=== PATIENT | female | born 1990 | race Caucasian/White ===

== ENCOUNTER 2017-03-01 01:39 | Emergency (ER) | payer MEDICAID, OTHER ==
[~2017-03-01] VITALS: Ht 170.2 cm; Wt 137.0 kg
[2017-03-01] MEDS ORDERED: ONDANSETRON 2MG/ML, 2ML IVPush ONE (02:00)
[2017-03-01] MEDS ORDERED: FAMOTIDINE 20 MG/2 ML IVP ONE (02:00)
[2017-03-01] MEDS ORDERED: SODIUM CHLORIDE 0.9% 1,000ML IVBOLUS ONE (02:00)
[2017-03-01 02:15] LABS: BLOOD UREA NITROGEN 10 mg/dL (7-18)
[2017-03-01 02:22] LABS: ASPARTATE AMINO TRANSFERASE 23 U/L (15-37)
[2017-03-01] MEDS ORDERED: ONDANSETRON 2MG/ML, 2ML ONE (02:40)
[2017-03-01] MEDS ORDERED: FAMOTIDINE 20 MG/2 ML ONE (02:40)
[2017-03-01] MEDS ORDERED: ONDA4TAB7 PO (02:51)
[2017-03-01 03:32] VITALS: BP 151/82
== END 2017-03-01 03:35 | disposition home or self-care (01) ==
LOC: ED 02:34
DX: R10.84 Generalized abdominal pain (principal); R11.2 Nausea with vomiting, unspecified; G43.A0 Cyclical vomiting, in migraine, not intractable
CPT/HCPCS: 36415; 80053; 83690; 84703; 85025; 96361; 96374; 96375; 99284; J2405; J7030; S0028

== ENCOUNTER 2017-03-02 03:41 | Emergency (ER) | payer OTHER ==
[~2017-03-02] VITALS: Ht 170.2 cm; Wt 135.8 kg
[~2017-03-02 03:41] MED LIST: ONDA4TAB7 PO
[2017-03-02] MEDS ORDERED: SODIUM CHLORIDE 0.9% 1,000ML IVBOLUS ONE (04:00)
[2017-03-02] MEDS ORDERED: PROMETHAZINE 25 MG/ML, 1ML ONE (04:00)
[2017-03-02] MEDS ORDERED: ONDANSETRON 2MG/ML, 2ML IVPush ONE (04:00)
[2017-03-02] MEDS ORDERED: ZIPRASIDONE 20 MG INJ IM ONE ×2 (04:00→04:01)
[2017-03-02] MEDS ORDERED: PROMETHAZINE 25 MG/ML, 1ML IM ONE (04:30)
[2017-03-02 05:01] LABS: ASPARTATE AMINO TRANSFERASE 25 U/L (15-37); BLOOD UREA NITROGEN 13 mg/dL (7-18)
[2017-03-02] MEDS ORDERED: KETOROLAC 30 MG/1 ML ONE (05:33)
[2017-03-02] MEDS ORDERED: ONDANSETRON 2MG/ML, 2ML ONE (05:33)
[2017-03-02] MEDS ORDERED: KETOROLAC 30 MG/1 ML IVPush ONE (06:00)
[2017-03-02] MEDS ORDERED: FAMOTIDINE 20 MG/2 ML ONE (06:27)
[2017-03-02] MEDS ORDERED: FAMOTIDINE 20 MG/2 ML IVPush ONE (06:30)
[2017-03-02 07:11] VITALS: BP 141/78
== END 2017-03-02 07:14 | disposition home or self-care (01) ==
LOC: ED 04:11
DX: K31.84 Gastroparesis (principal); R11.2 Nausea with vomiting, unspecified; R10.84 Generalized abdominal pain; F12.129 Cannabis abuse with intoxication, unspecified
CPT/HCPCS: 36415; 80053; 83690; 85025; 96361; 96372; 96374; 96375; 99284; J1885; J2405; J2550; J3486; J7030; S0028

== ENCOUNTER 2017-03-02 19:31 | Emergency (ER) | payer OTHER ==
[~2017-03-02] VITALS: Ht 170.2 cm; Wt 140.0 kg
[2017-03-02] MEDS ORDERED: DIPHENHYDRAMINE 50 MG/ML, 1ML ONE (20:14)
[2017-03-02] MEDS ORDERED: KETOROLAC 30 MG/1 ML ONE (20:14)
[2017-03-02] MEDS ORDERED: METOCLOPRAMIDE 5 MG/ML, 2ML ONE (20:14)
[2017-03-02] MEDS ORDERED: METOCLOPRAMIDE 5 MG/ML, 2ML IVPush ONE (20:30)
[2017-03-02] MEDS ORDERED: DIPHENHYDRAMINE 50 MG/ML, 1ML IVPush ONE (20:30)
[2017-03-02] MEDS ORDERED: SODIUM CHLORIDE 0.9% 1,000ML IVBOLUS ONE (20:30)
[2017-03-02] MEDS ORDERED: KETOROLAC 30 MG/1 ML IVPush ONE (20:30)
[2017-03-02] MEDS ORDERED: SODIUM CHLORIDE FLUSH 10ML SYR IVF ONE (20:30)
[2017-03-02 21:11] LABS: BLOOD UREA NITROGEN 11 mg/dL (7-18)
[2017-03-02 21:12] LABS: ASPARTATE AMINO TRANSFERASE 22 U/L (15-37)
[2017-03-02 22:06] VITALS: BP 159/88
== END 2017-03-02 22:21 | disposition home or self-care (01) ==
LOC: ED 21:11
DX: R10.84 Generalized abdominal pain (principal); G43.A0 Cyclical vomiting, in migraine, not intractable; F12.10 Cannabis abuse, uncomplicated
CPT/HCPCS: 36415; 76700; 80053; 83690; 85025; 96365; 96366; 96375; 99285; J1200; J1885; J2765; J7030

== ENCOUNTER 2017-03-03 07:51 | Emergency (ER) | payer OTHER ==
[~2017-03-03] VITALS: Ht 167.6 cm; Wt 110.0 kg
[2017-03-03] MEDS ORDERED: HALOPERIDOL 5 MG/ML IM STA (08:34)
[2017-03-03] MEDS ORDERED: ONDANSETRON 2MG/ML, 2ML ONE (08:42)
[2017-03-03] MEDS ORDERED: HALOPERIDOL 5 MG/ML ONE (08:42)
[2017-03-03] MEDS ORDERED: ONDANSETRON 2MG/ML, 2ML IVPush ONE (09:00)
[2017-03-03] MEDS ORDERED: FAMOTIDINE 20 MG/2 ML IVP ONE (09:00)
[2017-03-03] MEDS ORDERED: SODIUM CHLORIDE 0.9% 1,000ML IVBOLUS ONE (09:00)
[2017-03-03] MEDS ORDERED: LORazepam 2 MG/ML, 1ML IVPush ONE (09:00)
[2017-03-03] MEDS ORDERED: SODIUM CHLORIDE FLUSH 10ML SYR IVF ONE (09:00)
[2017-03-03 09:24] LABS: BLOOD UREA NITROGEN 11 mg/dL (7-18)
[2017-03-03 09:27] LABS: ASPARTATE AMINO TRANSFERASE 18 U/L (15-37)
[2017-03-03] MEDS ORDERED: POTASSIUM CHLORIDE 10% 40 MEQ/30 ML UDC PO ONE (10:00)
[2017-03-03 10:49] VITALS: BP 118/67
== END 2017-03-03 12:05 | disposition home or self-care (01) ==
LOC: ED 07:58
DX: E87.6 Hypokalemia (principal); R11.2 Nausea with vomiting, unspecified
CPT/HCPCS: 36415; 80053; 81001; 83690; 85025; 87086; 93005; 96361; 96372; 96374; 96375; 99285; J1630; J2060; J2405; J7030; S0028

== ENCOUNTER 2017-03-22 15:27 | Inpatient (IN) | payer OTHER, MEDICAID ==
[~2017-03-22] VITALS: Ht 170.2 cm; Wt 134.5 kg
[2017-03-22] MEDS ORDERED: ONDANSETRON 2MG/ML, 2ML ONE ×3 (15:55→16:34)
[2017-03-22] MEDS ORDERED: SODIUM CHLORIDE FLUSH 10ML SYR IVF ONE (16:00)
[2017-03-22] MEDS ORDERED: ONDANSETRON 2MG/ML, 2ML IVPush ONE (16:00)
[2017-03-22] MEDS ORDERED: SODIUM CHLORIDE 0.9% 1,000ML IVBOLUS ONE ×2 (16:00→18:00)
[2017-03-22 16:15] LABS: ASPARTATE AMINO TRANSFERASE 24 U/L (15-37); BLOOD UREA NITROGEN 10 mg/dL (7-18)
[2017-03-22] MEDS ORDERED: FAMOTIDINE 20 MG/2 ML ONE (16:20)
[2017-03-22] MEDS ORDERED: METOCLOPRAMIDE 5 MG/ML, 2ML ONE (16:20)
[2017-03-22] MEDS ORDERED: FAMOTIDINE 20 MG/2 ML IVP ONE (16:30)
[2017-03-22] MEDS ORDERED: METOCLOPRAMIDE 5 MG/ML, 2ML IVPush ONE (16:30)
[2017-03-22] MEDS ORDERED: LORazepam 2 MG/ML, 1ML IVPush ONE (17:00)
[2017-03-22] MEDS ORDERED: LORazepam 2 MG/ML, 1ML ONE (17:08)
[2017-03-22] MEDS ORDERED: PROMETHAZINE 25 MG/ML, 1ML ONE (18:53)
[2017-03-22] MEDS ORDERED: PROMETHAZINE 25 MG/ML, 1ML IM ONE (19:00)
[2017-03-22] MEDS ORDERED: SODIUM CHLORIDE 0.9% 1,000 ML IV ONE (20:09)
[2017-03-22] MEDS ORDERED: SODIUM CHLORIDE FLUSH 10ML SYR IVF PRN (20:30)
[2017-03-22] MEDS ORDERED: ONDANSETRON 2MG/ML, 2ML IVPush PRN (20:30)
[2017-03-22] MEDS ORDERED: BISACODYL 10 MG SUPP PR PRN (21:00)
[2017-03-22] MEDS: HEPARIN 5,000 UNITS/ML, 1ML SQ SCH (22:04)
[2017-03-22] MEDS: NS + 20MEQ KCL 1,000 ML IV SCH (22:04)
[2017-03-22] MEDS: PROMETHAZINE 25 MG/ML, 1ML IM PRN (22:05)
[2017-03-22 22:12] VITALS: BP 144/89
[2017-03-22] MEDS: ONDANSETRON 2MG/ML, 2ML IVPush PRN (22:36)
[2017-03-22] MEDS: HYDROmorphone 2 MG/ML, 1ML IVPush PRN (22:36)
[2017-03-23] MEDS: PROMETHAZINE 25 MG/ML, 1ML IM PRN ×6 (00:58→23:28)
[2017-03-23 02:00] VITALS: BP 121/76
[2017-03-23] MEDS: ONDANSETRON 2MG/ML, 2ML IVPush PRN ×3 (05:15→20:00)
[2017-03-23 05:30] LABS: ASPARTATE AMINO TRANSFERASE 17 U/L (15-37); BLOOD UREA NITROGEN 9 mg/dL (7-18)
[2017-03-23] MEDS: HYDROmorphone 2 MG/ML, 1ML IVPush PRN (06:15)
[2017-03-23] MEDS: NS + 20MEQ KCL 1,000 ML IV SCH ×3 (06:15→23:29)
[2017-03-23] MEDS: HEPARIN 5,000 UNITS/ML, 1ML SQ SCH ×3 (06:15→19:59)
[2017-03-23 07:28] VITALS: BP 121/79
[2017-03-23 12:49] VITALS: BP 124/85
[2017-03-23] MEDS: ACETAMINOPHEN 325 MG TABLET PO PRN ×2 (14:01→20:00)
[2017-03-23 20:00] VITALS: BP 149/83
[2017-03-23] MEDS: FAMOTIDINE 20 MG TABLET PO SCH (23:51)
[2017-03-24] VITALS (7 sets, daily range): BP systolic 80–156; BP diastolic 56–105
[2017-03-24] MEDS: ONDANSETRON 2MG/ML, 2ML IVPush PRN ×3 (02:41→17:38)
[2017-03-24] MEDS ORDERED: SODIUM CHLORIDE 0.9%, 500ML IVBOLUS ONE (03:00)
[2017-03-24] MEDS ORDERED: NITROGLYCERIN 0.4 MG BOTTLE (25 TABS) SL ONE (03:28)
[2017-03-24] MEDS ORDERED: NITROGLYCERIN 0.4 MG BOTTLE (25 TABS) SL PRN ×2 (03:30→17:00)
[2017-03-24 04:00] LABS: IS PT STATUS REG ER OR PRE ER? NO
[2017-03-24] MEDS ORDERED: MAGNESIUM SULFATE PMX 2GM/50ML 50 ML IV ONE (04:00)
[2017-03-24] MEDS ORDERED: FAMOTIDINE 20 MG/2 ML IVPush SCH (04:00)
[2017-03-24] MEDS ORDERED: MORPHINE SULFATE 4 MG/ML, 1ML IVPush ONE (04:00)
[2017-03-24] MEDS ORDERED: METOCLOPRAMIDE 5 MG/ML, 2ML IVPush ONE (04:00)
[2017-03-24] MEDS: HEPARIN 5,000 UNITS/ML, 1ML SQ SCH ×2 (06:42→14:00)
[2017-03-24 08:04] LABS: ASPARTATE AMINO TRANSFERASE 23 U/L (15-37); BLOOD UREA NITROGEN 7 mg/dL (7-18)
[2017-03-24] MEDS: FAMOTIDINE 20 MG TABLET PO SCH ×2 (09:18→20:30)
[2017-03-24] MEDS: SUCRALFATE 1 GM TABLET PO SCH ×4 (09:18→20:30)
[2017-03-24] MEDS: NS + 20MEQ KCL 1,000 ML IV SCH (09:18)
[2017-03-24] MEDS: PROMETHAZINE 25 MG/ML, 1ML IM PRN ×2 (09:19→14:43)
[2017-03-24] MEDS: ACETAMINOPHEN 325 MG TABLET PO PRN (14:43)
[2017-03-24] MEDS ORDERED: BISACODYL 10 MG SUPP PR PRN (17:00)
[2017-03-24] MEDS ORDERED: NS + 20MEQ KCL 1,000 ML IV SCH (17:00)
[2017-03-24] MEDS ORDERED: HEPARIN 5,000 UNITS/ML, 1ML SQ SCH (21:00)
[2017-03-25] MEDS ORDERED: MULT-208 PO (04:09)
== END 2017-03-24 22:06 | disposition home or self-care (01) | DRG 103 ==
LOC: ED 16:30 → EDIP 20:09 → 3NE 20:54
PROVIDERS: ADMIT Internal Medicine; ATTEND Internal Medicine
DX: G43.A0 Cyclical vomiting, in migraine, not intractable (principal); Z68.42 Body mass index [BMI] 45.0-49.9, adult; E66.01 Morbid (severe) obesity due to excess calories; F41.9 Anxiety disorder, unspecified; D75.89 Other specified diseases of blood and blood-forming organs; D72.829 Elevated white blood cell count, unspecified; R73.9 Hyperglycemia, unspecified; E88.89 Other specified metabolic disorders; E86.0 Dehydration; I45.81 Long QT syndrome; E28.2 Polycystic ovarian syndrome; T73.0XXA Starvation, initial encounter; F12.90 Cannabis use, unspecified, uncomplicated; Z53.21 Procedure and treatment not carried out due to patient leaving prior to being seen by health care provider
CPT/HCPCS: 36415; 71010; 74020; 74177; 76700; 80053; 81001; 83036; 83690; 83735; 84484; 84703; 85025; 87086; 93005; 96361; 96372; 96374; 96375; J1170; J1644; J2405; J2550; J3480; J2060; J2765; J3475; J7030; J7040; S0028

== ENCOUNTER 2017-03-25 02:45 | Emergency (ER) | payer MEDICAID, OTHER ==
[~2017-03-25] VITALS: Ht 170.2 cm; Wt 140.6 kg
[2017-03-25] MEDS ORDERED: PROMETHAZINE 25 MG/ML, 1ML ONE (03:26)
[2017-03-25] MEDS ORDERED: FAMOTIDINE 20 MG/2 ML ONE (03:27)
[2017-03-25] MEDS ORDERED: MAALOX/HYOSCYAMINE/LIDOCAINE 45 ML BOTTLE ONE (03:27)
[2017-03-25] MEDS ORDERED: MAALOX/HYOSCYAMINE/LIDOCAINE 45 ML BOTTLE PO ONE (03:30)
[2017-03-25] MEDS ORDERED: FAMOTIDINE 20 MG/2 ML IVP ONE (03:30)
[2017-03-25] MEDS ORDERED: HALOPERIDOL 5 MG/ML IM ONE (03:30)
[2017-03-25] MEDS ORDERED: SODIUM CHLORIDE FLUSH 10ML SYR IVF ONE (03:30)
[2017-03-25] MEDS ORDERED: PROMETHAZINE 25 MG/ML, 1ML IM ONE (03:30)
[2017-03-25] MEDS ORDERED: SODIUM CHLORIDE 0.9% 1,000ML IVBOLUS ONE (03:30)
[2017-03-25 03:41] LABS: ASPARTATE AMINO TRANSFERASE 32 U/L (15-37); BLOOD UREA NITROGEN 6 mg/dL (7-18)
[2017-03-25] MEDS ORDERED: MULT-208 PO (04:09)
[2017-03-25 04:19] LABS: PATH.CAST-FLAG NOT PRESENT; SPERM-FLAG NOT PRESENT; SRC-FLAG NOT PRESENT; XTAL-FLAG NOT PRESENT; YLC-FLAG NOT PRESENT
[2017-03-25 05:18] VITALS: BP 104/55
== END 2017-03-25 05:19 | disposition home or self-care (01) ==
LOC: ED 05:13
DX: R11.2 Nausea with vomiting, unspecified (principal)
CPT/HCPCS: 36415; 80053; 81001; 83690; 84703; 85025; 87086; 96361; 96372; 96374; 99284; J2550; J7030; S0028

== ENCOUNTER 2017-03-25 08:27 | Emergency (ER) | payer OTHER ==
[~2017-03-25] VITALS: Ht 170.2 cm; Wt 140.7 kg
[~2017-03-25 08:27] MED LIST changes: +MULT-208 PO
[2017-03-25 08:35] VITALS: BP 156/92
[2017-03-25] MEDS ORDERED: SODIUM CHLORIDE 0.9% 1,000 ML IV ONE ×2 (09:04→09:48)
[2017-03-25] MEDS ORDERED: ONDANSETRON 2MG/ML, 2ML ONE (09:14)
[2017-03-25] MEDS ORDERED: PROCHLORPERAZINE 5 MG/ML, 2ML ONE (09:14)
[2017-03-25] MEDS ORDERED: FAMOTIDINE 20 MG/2 ML ONE (09:14)
[2017-03-25 09:29] LABS: ASPARTATE AMINO TRANSFERASE 34 U/L (15-37); BLOOD UREA NITROGEN 6 mg/dL (7-18)
[2017-03-25] MEDS ORDERED: SODIUM CHLORIDE FLUSH 10ML SYR IVF ONE (09:30)
[2017-03-25] MEDS ORDERED: ONDANSETRON 2MG/ML, 2ML IVPush ONE (09:30)
[2017-03-25] MEDS ORDERED: FAMOTIDINE 20 MG/2 ML IVP ONE (09:30)
[2017-03-25] MEDS ORDERED: SODIUM CHLORIDE 0.9% 1,000ML IVBOLUS ONE (09:30)
[2017-03-25] MEDS ORDERED: PROCHLORPERAZINE 5 MG/ML, 2ML IVPush ONE (09:30)
[2017-03-25] MEDS ORDERED: SODIUM CHLORIDE FLUSH 10ML SYR IVF PRN (10:00)
[2017-03-25] MEDS ORDERED: POTASSIUM CHLORIDE 20 MEQ TAB.ER.PRT PO ONE (10:00)
== END 2017-03-25 11:12 | disposition home or self-care (01) ==
LOC: ED 09:19 → UNDOADMIN 09:48 → EDIP 09:48 → ED 11:12
DX: E86.0 Dehydration (principal); R11.2 Nausea with vomiting, unspecified
CPT/HCPCS: 36415; 80053; 83690; 85025; 96361; 96374; 96375; 99284; J0780; J2405; J7030; S0028

== ENCOUNTER 2017-03-25 22:26 | Emergency (ER) | payer OTHER ==
[~2017-03-25] VITALS: Ht 170.2 cm; Wt 142.8 kg
[2017-03-25] MEDS ORDERED: PROMETHAZINE 25 MG/ML, 1ML ONE (22:42)
[2017-03-25] MEDS ORDERED: ONDANSETRON ODT 4 MG ONE (22:43)
[2017-03-25] MEDS ORDERED: PROMETHAZINE 25 MG/ML, 1ML IM ONE (23:00)
[2017-03-25] MEDS ORDERED: ONDANSETRON ODT 4 MG PO ONE (23:00)
[2017-03-25 23:48] LABS: BLOOD UREA NITROGEN 6 mg/dL (7-18)
[2017-03-26] MEDS ORDERED: POTASSIUM CHLORIDE 20 MEQ TAB.ER.PRT PO ONE
[2017-03-26 00:03] LABS: ASPARTATE AMINO TRANSFERASE 34 U/L (15-37)
[2017-03-26] MEDS ORDERED: KETOROLAC 30 MG/1 ML ONE (00:14)
[2017-03-26] MEDS ORDERED: ONDANSETRON ODT 4 MG ONE (00:14)
[2017-03-26] MEDS ORDERED: POTASSIUM CHLORIDE 20 MEQ TAB.ER.PRT ONE (00:15)
[2017-03-26 00:30] VITALS: BP 132/78
== END 2017-03-26 00:32 | disposition home or self-care (01) ==
LOC: ED 23:20
DX: R11.2 Nausea with vomiting, unspecified (principal); E87.6 Hypokalemia; G43.A0 Cyclical vomiting, in migraine, not intractable; F11.90 Opioid use, unspecified, uncomplicated
CPT/HCPCS: 36415; 74022; 80053; 83690; 85025; 96372; 99285; J2550; Q0162

== ENCOUNTER 2017-04-08 16:22 | Emergency (ER) | payer OTHER ==
[~2017-04-08] VITALS: Ht 170.2 cm; Wt 139.4 kg
[2017-04-08 16:27] VITALS: BP 172/81
[2017-04-08] MEDS ORDERED: ONDANSETRON 2MG/ML, 2ML IVPush ONE (17:00)
[2017-04-08] MEDS ORDERED: FAMOTIDINE 20 MG/2 ML IVP ONE (17:00)
[2017-04-08] MEDS ORDERED: SODIUM CHLORIDE FLUSH 10ML SYR IVF ONE (17:00)
[2017-04-08] MEDS ORDERED: SODIUM CHLORIDE 0.9% 1,000ML IVBOLUS ONE (17:00)
[2017-04-08 17:13] LABS: ASPARTATE AMINO TRANSFERASE 24 U/L (15-37); BLOOD UREA NITROGEN 10 mg/dL (7-18)
[2017-04-08] MEDS ORDERED: HALOPERIDOL 5 MG/ML IM ONE ×2 (17:30)
[2017-04-08] MEDS ORDERED: LORazepam 2 MG/ML, 1ML IVPush ONE (17:30)
[2017-04-08] MEDS ORDERED: HALOPERIDOL 5 MG/ML ONE (17:31)
[2017-04-08] MEDS ORDERED: LORazepam 2 MG/ML, 1ML ONE (17:31)
[2017-04-08] MEDS ORDERED: ONDANSETRON 2MG/ML, 2ML ONE (17:31)
[2017-04-08] MEDS ORDERED: FAMOTIDINE 20 MG/2 ML ONE (17:31)
[2017-04-08 18:26] LABS: DIFF TOTAL CELLS COUNTED 100 CELL DIFF
[2017-04-08 18:27] LABS: VERIFY COUNTS? YES
[2017-04-08 18:28] LABS: LARGE PLATELETS 1+
== END 2017-04-08 19:15 | disposition home or self-care (01) ==
LOC: ED 19:00
DX: D72.829 Elevated white blood cell count, unspecified (principal); R11.10 Vomiting, unspecified
CPT/HCPCS: 36415; 80053; 83690; 84703; 85025; 96361; 96372; 96374; 96375; 99284; J1630; J2060; J2405; J7030; S0028

== ENCOUNTER 2017-04-23 04:07 | Emergency (ER) | payer OTHER ==
[~2017-04-23] VITALS: Ht 170.2 cm; Wt 105.0 kg
[2017-04-23] MEDS ORDERED: DIPHENHYDRAMINE 50 MG/ML, 1ML ONE (04:57)
[2017-04-23] MEDS ORDERED: KETOROLAC 30 MG/1 ML ONE (04:57)
[2017-04-23] MEDS ORDERED: METOCLOPRAMIDE 5 MG/ML, 2ML ONE (04:57)
[2017-04-23] MEDS ORDERED: FAMOTIDINE 20 MG/2 ML ONE (04:58)
[2017-04-23] MEDS ORDERED: DIPHENHYDRAMINE 50 MG/ML, 1ML IVPush ONE (05:00)
[2017-04-23] MEDS ORDERED: METOCLOPRAMIDE 5 MG/ML, 2ML IVPush ONE (05:00)
[2017-04-23] MEDS ORDERED: SODIUM CHLORIDE FLUSH 10ML SYR IVF ONE (05:00)
[2017-04-23] MEDS ORDERED: DICYCLOMINE 20 MG TABLET PO ONE (05:00)
[2017-04-23] MEDS ORDERED: SODIUM CHLORIDE 0.9% 1,000ML IVBOLUS ONE (05:00)
[2017-04-23] MEDS ORDERED: FAMOTIDINE 20 MG/2 ML IVP ONE (05:00)
[2017-04-23] MEDS ORDERED: KETOROLAC 30 MG/1 ML IVPush ONE (05:00)
[2017-04-23 06:40] LABS: HEMATOCRIT 38.9 % (34.6-47.8); HEMOGLOBIN 12.7 g/dL (11.7-16.4); WHITE BLOOD COUNT 18.4 x10^3/uL (3.4-10)
[2017-04-23 06:52] LABS: BLOOD UREA NITROGEN 9 mg/dL (7-18)
[2017-04-23] MEDS ORDERED: PROMETHAZINE 25 MG/ML, 1ML ONE (07:22)
[2017-04-23] MEDS ORDERED: HALOPERIDOL 5 MG/ML ONE (07:30)
[2017-04-23] MEDS ORDERED: HALOPERIDOL 5 MG/ML IV ONE (07:30)
[2017-04-23] MEDS ORDERED: PROMETHAZINE 25 MG/ML, 1ML IM ONE (07:30)
[2017-04-23] MEDS ORDERED: METO10TA82 PO (07:51)
[2017-04-23] MEDS ORDERED: ONDA4TAB10 PO (07:51)
[2017-04-23] MEDS ORDERED: FAMO-79 PO (07:51)
[2017-04-23 08:25] VITALS: BP 138/81
== END 2017-04-23 08:28 | disposition home or self-care (01) ==
LOC: ED 04:17
DX: R10.84 Generalized abdominal pain (principal); Z72.9 Problem related to lifestyle, unspecified; R11.2 Nausea with vomiting, unspecified; F12.10 Cannabis abuse, uncomplicated
CPT/HCPCS: 36415; 80048; 85025; 96361; 96372; 96374; 96375; 99285; J1200; J1630; J1885; J2550; J2765; J7030; S0028

== ENCOUNTER 2017-05-15 01:58 | Inpatient (IN) | payer OTHER, MEDICAID ==
[~2017-05-15] VITALS: Ht 170.2 cm; Wt 141.8 kg
[~2017-05-15 01:58] MED LIST changes: +FAMO-79 PO; +METO10TA82 PO; +ONDA4TAB10 PO
[2017-05-15] MEDS ORDERED: ONDANSETRON 2MG/ML, 2ML IVPush ONE ×2 (02:30→04:30)
[2017-05-15] MEDS ORDERED: PROMETHAZINE 25 MG/ML, 1ML IM ONE (02:30)
[2017-05-15] MEDS ORDERED: SODIUM CHLORIDE 0.9% 1,000ML IVBOLUS ONE ×2 (02:30→04:30)
[2017-05-15] MEDS ORDERED: ONDANSETRON 2MG/ML, 2ML ONE ×2 (02:32→03:44)
[2017-05-15] MEDS ORDERED: PROMETHAZINE 25 MG/ML, 1ML ONE (02:32)
[2017-05-15 02:43] LABS: HEMATOCRIT 36.8 % (34.6-47.8); HEMOGLOBIN 12.3 g/dL (11.7-16.4); WHITE BLOOD COUNT 16.5 x10^3/uL (3.4-10)
[2017-05-15 02:51] LABS: ASPARTATE AMINO TRANSFERASE 11 U/L (15-37); BLOOD UREA NITROGEN 8 mg/dL (7-18)
[2017-05-15] MEDS ORDERED: ZIPRASIDONE 20 MG INJ IM ONE ×3 (03:30→04:30)
[2017-05-15] MEDS: ZIPRASIDONE 20 MG INJ IM ONE ×2 (03:30→04:22)
[2017-05-15] MEDS ORDERED: SODIUM CHLORIDE 0.9% 1,000 ML IV ONE (05:18)
[2017-05-15] MEDS ORDERED: PROMETHAZINE 25 MG/ML, 1ML IM PRN (05:30)
[2017-05-15] MEDS ORDERED: ONDANSETRON 2MG/ML, 2ML IVPush PRN (05:30)
[2017-05-15 06:19] VITALS: BP 135/93
[2017-05-15] MEDS ORDERED: ACETAMINOPHEN 325 MG TABLET PO PRN (06:30)
[2017-05-15] MEDS ORDERED: DOCUSATE 100 MG CAPSULE PO PRN (06:30)
[2017-05-15] MEDS: NS + 20MEQ KCL 1,000 ML IV SCH ×2 (06:33→16:36)
[2017-05-15] MEDS: KETOROLAC 30 MG/1 ML IM PRN ×2 (07:13→18:36)
[2017-05-15] MEDS: FAMOTIDINE 20 MG TABLET PO SCH ×2 (08:58→20:46)
[2017-05-15] MEDS: ENOXAPARIN 40 MG/0.4 ML SQ SCH (08:58)
[2017-05-15] MEDS: ONDANSETRON 2MG/ML, 2ML IVPush PRN ×2 (10:44→17:47)
[2017-05-15] MEDS: PROMETHAZINE 25 MG/ML, 1ML IM PRN ×3 (12:08→20:48)
[2017-05-15 13:42] VITALS: BP 146/87
[2017-05-15] MEDS: METOCLOPRAMIDE 10MG TABLET PO PRN ×2 (13:42→20:46)
[2017-05-15 19:16] VITALS: BP 104/70
[2017-05-16] MEDS: ONDANSETRON 2MG/ML, 2ML IVPush PRN ×2 (00:15→09:00)
[2017-05-16] MEDS: KETOROLAC 30 MG/1 ML IVPush PRN ×2 (00:28→07:26)
[2017-05-16] MEDS: PROMETHAZINE 25 MG/ML, 1ML IM PRN ×3 (00:31→12:44)
[2017-05-16] MEDS: METOCLOPRAMIDE 10MG TABLET PO PRN (03:31)
[2017-05-16 03:34] VITALS: BP 114/72
[2017-05-16 05:42] LABS: HEMATOCRIT 32.4 % (34.6-47.8); HEMOGLOBIN 10.9 g/dL (11.7-16.4); WHITE BLOOD COUNT 13.1 x10^3/uL (3.4-10)
[2017-05-16 06:11] LABS: BLOOD UREA NITROGEN 7 mg/dL (7-18)
[2017-05-16] MEDS: ENOXAPARIN 40 MG/0.4 ML SQ SCH (07:06)
[2017-05-16] MEDS: FAMOTIDINE 20 MG TABLET PO SCH ×2 (07:25→21:21)
[2017-05-16 08:05] VITALS: BP 153/104
[2017-05-16] MEDS: METOCLOPRAMIDE 10MG TABLET PO SCH ×3 (11:12→23:02)
[2017-05-16 11:15] VITALS: BP 154/94
[2017-05-16 12:05] VITALS: BP 151/101
[2017-05-16] MEDS: D5%-0.9% NACL+KCL 20MEQ 1,000 ML IV SCH ×2 (12:47→22:21)
[2017-05-16 20:01] VITALS: BP 116/77
[2017-05-17 02:00] VITALS: BP 127/74
[2017-05-17] MEDS: METOCLOPRAMIDE 10MG TABLET PO SCH ×2 (05:59→11:54)
[2017-05-17] MEDS: FAMOTIDINE 20 MG TABLET PO SCH (07:28)
[2017-05-17 07:46] VITALS: BP 136/94
[2017-05-17 13:54] VITALS: BP 109/67
== END 2017-05-17 16:45 | disposition home or self-care (01) | DRG 103 ==
LOC: ED 02:27 → EDIP 05:39 → 3NE 06:09
PROVIDERS: ADMIT Family Medicine; ATTEND Family Medicine
DX: G43.A0 Cyclical vomiting, in migraine, not intractable (principal); Z68.42 Body mass index [BMI] 45.0-49.9, adult; E66.01 Morbid (severe) obesity due to excess calories; E87.6 Hypokalemia; F12.90 Cannabis use, unspecified, uncomplicated
CPT/HCPCS: 36415; 80048; 80053; 83690; 83735; 84703; 85025; 96361; 96372; 96374; 96376; J1885; J2405; J2550; J3480; J3486; J7030

== ENCOUNTER 2017-06-05 18:24 | Inpatient (IN) | payer OTHER, MEDICAID ==
[~2017-06-05] VITALS: Ht 170.2 cm; Wt 140.2 kg
[2017-06-05] MEDS ORDERED: ZIPRASIDONE 20 MG INJ IM ONE ×2 (18:30→18:46)
[2017-06-05] MEDS ORDERED: SODIUM CHLORIDE FLUSH 10ML SYR IVF ONE (18:30)
[2017-06-05] MEDS ORDERED: SODIUM CHLORIDE 0.9% 1,000ML IVBOLUS ONE (18:30)
[2017-06-05] MEDS ORDERED: FAMOTIDINE 20 MG/2 ML IVP ONE (18:30)
[2017-06-05] MEDS ORDERED: FAMOTIDINE 20 MG/2 ML ONE (18:46)
[2017-06-05 19:11] LABS: HEMATOCRIT 40.1 % (34.6-47.8); WHITE BLOOD COUNT 22.2 x10^3/uL (3.4-10)
[2017-06-05 19:19] LABS: DIFF TOTAL CELLS COUNTED 100 CELL DIFF
[2017-06-05 19:21] LABS: BLOOD UREA NITROGEN 9 mg/dL (7-18)
[2017-06-05 19:44] LABS: VERIFY COUNTS? YES
[2017-06-05] MEDS ORDERED: ONDANSETRON 2MG/ML, 2ML ONE (21:03)
[2017-06-05] MEDS ORDERED: LORazepam 2 MG/ML, 1ML ONE (21:04)
[2017-06-05] MEDS: LORazepam 2 MG/ML, 1ML IVPush PRN (21:12)
[2017-06-05] MEDS: ONDANSETRON 2MG/ML, 2ML IVPush PRN (21:14)
[2017-06-05] MEDS: SODIUM CHLORIDE 0.9% 1,000 ML IV SCH (22:24)
[2017-06-05 22:25] VITALS: BP 119/86
[2017-06-06 01:06] VITALS: BP 102/66
[2017-06-06] MEDS: LORazepam 2 MG/ML, 1ML IVPush PRN (02:13)
[2017-06-06] MEDS: PROMETHAZINE 25 MG/ML, 1ML IM PRN ×3 (03:29→20:50)
[2017-06-06 05:35] LABS: HEMATOCRIT 36.1 % (34.6-47.8); HEMOGLOBIN 12.1 g/dL (11.7-16.4); WHITE BLOOD COUNT 16.8 x10^3/uL (3.4-10)
[2017-06-06 05:55] LABS: BLOOD UREA NITROGEN 8 mg/dL (7-18)
[2017-06-06 07:01] VITALS: BP 124/80
[2017-06-06] MEDS ORDERED: PANTOPRAZOLE 40 MG IV IVPush SCH (07:30)
[2017-06-06] MEDS: ONDANSETRON 2MG/ML, 2ML IVPush PRN (09:08)
[2017-06-06] MEDS: FAMOTIDINE 20 MG TABLET PO SCH (09:08)
[2017-06-06] MEDS ORDERED: ACETAMINOPHEN 650 MG SUPP PR PRN (09:30)
[2017-06-06 13:46] VITALS: BP 131/72
[2017-06-06] MEDS: SODIUM CHLORIDE 0.9% 1,000 ML IV SCH (14:36)
[2017-06-06 17:57] LABS: DAU SCREEN DISCLAIMER
[2017-06-06 19:05] VITALS: BP 108/74
[2017-06-07 01:51] VITALS: BP 125/81
[2017-06-07] MEDS ORDERED: ONDANSETRON ODT 4 MG PO PRN (02:30)
[2017-06-07 05:31] LABS: HEMATOCRIT 34.9 % (34.6-47.8); HEMOGLOBIN 11.6 g/dL (11.7-16.4); WHITE BLOOD COUNT 11.9 x10^3/uL (3.4-10)
[2017-06-07 05:54] LABS: ASPARTATE AMINO TRANSFERASE 21 U/L (15-37); BLOOD UREA NITROGEN 10 mg/dL (7-18)
[2017-06-07 06:50] VITALS: BP 120/81
[2017-06-07] MEDS: FAMOTIDINE 20 MG TABLET PO SCH (08:55)
[2017-06-07] MEDS: PROMETHAZINE 25 MG/ML, 1ML IM PRN (08:55)
[2017-06-07] MEDS ORDERED: PROM25SU34 RC (09:58)
== END 2017-06-07 13:32 | disposition home or self-care (01) | DRG 392 ==
LOC: ED 18:31 → EDIP 20:31 → 4WST 21:51 → 3NE 22:15 → OBSVTOIN 06-07 09:11
PROVIDERS: ADMIT Internal Medicine; ATTEND Internal Medicine
DX: R11.2 Nausea with vomiting, unspecified (principal); Z68.42 Body mass index [BMI] 45.0-49.9, adult; E66.01 Morbid (severe) obesity due to excess calories; F41.9 Anxiety disorder, unspecified; F12.90 Cannabis use, unspecified, uncomplicated
CPT/HCPCS: 36415; 80048; 80053; 80307; 81003; 82040; 83735; 85025; 96372; 96374; G0378; J2405; J2550; J3486; G0479; J2060; J7030; S0028

== ENCOUNTER 2017-06-22 12:05 | Emergency (ER) | payer OTHER, MEDICAID ==
[~2017-06-22] VITALS: Ht 170.2 cm; Wt 139.8 kg
[~2017-06-22 12:05] MED LIST changes: +PROM25SU34 RC
[2017-06-22] MEDS ORDERED: SODIUM CHLORIDE 0.9% 1,000 ML IV ONE (12:30)
[2017-06-22] MEDS ORDERED: ONDANSETRON 2MG/ML, 2ML IVPush ONE (12:30)
[2017-06-22] MEDS ORDERED: FAMOTIDINE 20 MG/2 ML IVP ONE (12:30)
[2017-06-22] MEDS ORDERED: SODIUM CHLORIDE 0.9% 1,000ML IVBOLUS ONE (12:30)
[2017-06-22] MEDS ORDERED: SODIUM CHLORIDE FLUSH 10ML SYR IVF ONE (12:30)
[2017-06-22] MEDS ORDERED: ONDANSETRON 2MG/ML, 2ML ONE (12:44)
[2017-06-22] MEDS ORDERED: FAMOTIDINE 20 MG/2 ML ONE (12:44)
[2017-06-22 13:03] LABS: HEMATOCRIT 35.5 % (34.6-47.8); HEMOGLOBIN 11.9 g/dL (11.7-16.4)
[2017-06-22 13:16] LABS: ASPARTATE AMINO TRANSFERASE 16 U/L (15-37); BLOOD UREA NITROGEN 3 mg/dL (7-18)
[2017-06-22 13:39] VITALS: BP 128/76
== END 2017-06-22 14:08 | disposition home or self-care (01) ==
LOC: ED 12:56
DX: R11.2 Nausea with vomiting, unspecified (principal); G43.A0 Cyclical vomiting, in migraine, not intractable
CPT/HCPCS: 36415; 80053; 81003; 83690; 84703; 85025; 96361; 96374; 96375; 99284; J2405; J7030; S0028

== ENCOUNTER 2017-06-23 08:32 | Emergency (ER) | payer OTHER, MEDICAID ==
[~2017-06-23] VITALS: Ht 170.2 cm; Wt 136.5 kg
[2017-06-23] MEDS ORDERED: SODIUM CHLORIDE 0.9% 1,000 ML IV ONE (08:36)
[2017-06-23 09:00] LABS: HEMOGLOBIN 12.3 g/dL (11.7-16.4); WHITE BLOOD COUNT 12.6 x10^3/uL (3.4-10)
[2017-06-23] MEDS ORDERED: FAMOTIDINE 20 MG/2 ML IVP ONE (09:00)
[2017-06-23] MEDS ORDERED: SODIUM CHLORIDE FLUSH 10ML SYR IVF ONE (09:00)
[2017-06-23] MEDS ORDERED: SODIUM CHLORIDE 0.9% 1,000ML IVBOLUS ONE (09:00)
[2017-06-23] MEDS ORDERED: ONDANSETRON 2MG/ML, 2ML IVPush ONE (09:00)
[2017-06-23 09:02] VITALS: BP 148/92
[2017-06-23 09:12] LABS: BLOOD UREA NITROGEN 6 mg/dL (7-18)
[2017-06-23] MEDS ORDERED: FAMOTIDINE 20 MG/2 ML ONE (09:16)
[2017-06-23] MEDS ORDERED: HALOPERIDOL 5 MG/ML ONE (09:16)
[2017-06-23] MEDS ORDERED: ONDANSETRON 2MG/ML, 2ML ONE (09:16)
[2017-06-23 09:24] LABS: ASPARTATE AMINO TRANSFERASE 29 U/L (15-37)
[2017-06-23] MEDS ORDERED: HALOPERIDOL 5 MG/ML IVPush ONE (09:30)
== END 2017-06-23 10:45 | disposition home or self-care (01) ==
LOC: ED 08:37
DX: R11.2 Nausea with vomiting, unspecified (principal); R19.7 Diarrhea, unspecified
CPT/HCPCS: 36415; 74020; 80053; 82010; 83605; 83690; 84443; 85025; 96361; 96374; 96375; 99285; J1630; J2405; J7030; S0028

== ENCOUNTER 2017-07-21 11:56 | Emergency (ER) | payer MEDICAID, OTHER ==
[~2017-07-21] VITALS: Ht 170.2 cm; Wt 135.1 kg
[2017-07-21] MEDS ORDERED: SODIUM CHLORIDE 0.9% 1,000 ML IV ONE (12:18)
[2017-07-21] MEDS ORDERED: HALOPERIDOL 5 MG/ML IVPush ONE (12:30)
[2017-07-21] MEDS ORDERED: SODIUM CHLORIDE 0.9% 1,000ML IVBOLUS ONE (12:30)
[2017-07-21] MEDS ORDERED: ONDANSETRON 2MG/ML, 2ML IVPush ONE (12:30)
[2017-07-21] MEDS ORDERED: SODIUM CHLORIDE FLUSH 10ML SYR IVF ONE (12:30)
[2017-07-21 12:46] LABS: HEMATOCRIT 40.3 % (34.6-47.8); HEMOGLOBIN 13.4 g/dL (11.7-16.4); WHITE BLOOD COUNT 16.3 x10^3/uL (3.4-10)
[2017-07-21] MEDS ORDERED: HALOPERIDOL 5 MG/ML ONE (12:50)
[2017-07-21] MEDS ORDERED: ONDANSETRON 2MG/ML, 2ML ONE (12:50)
[2017-07-21 12:56] LABS: ASPARTATE AMINO TRANSFERASE 21 U/L (15-37); BLOOD UREA NITROGEN 7 mg/dL (7-18)
[2017-07-21] MEDS ORDERED: PROMETHAZINE 25 MG/ML, 1ML IM ONE (14:00)
[2017-07-21] MEDS ORDERED: PROMETHAZINE 25 MG/ML, 1ML ONE (14:41)
[2017-07-21 15:20] VITALS: BP 120/67
== END 2017-07-21 15:20 | disposition home or self-care (01) ==
LOC: ED 13:29
DX: R11.2 Nausea with vomiting, unspecified (principal)
CPT/HCPCS: 36415; 80053; 85025; 93005; 96361; 96372; 96374; 96375; 99285; J1630; J2405; J2550; J7030

== ENCOUNTER 2017-08-06 15:01 | Emergency (ER) | payer MEDICAID ==
[~2017-08-06] VITALS: Ht 170.2 cm; Wt 136.5 kg
[~2017-08-06 15:01] MED LIST changes: +LORA1TAB PO; +ONDA8TAB12 PO
[2017-08-06] MEDS ORDERED: LORazepam 2 MG/ML, 1ML IVPush ONE (15:30)
[2017-08-06] MEDS ORDERED: SODIUM CHLORIDE FLUSH 10ML SYR IVF ONE (15:30)
[2017-08-06] MEDS ORDERED: SODIUM CHLORIDE 0.9% 1,000ML IVBOLUS ONE (15:30)
[2017-08-06] MEDS ORDERED: PROMETHAZINE 25 MG/ML, 1ML IM ONE (15:30)
[2017-08-06 15:43] LABS: BLOOD UREA NITROGEN 5 mg/dL (7-18)
[2017-08-06] MEDS ORDERED: PROMETHAZINE 25 MG/ML, 1ML ONE (16:14)
[2017-08-06] MEDS ORDERED: LORazepam 2 MG/ML, 1ML ONE (16:15)
[2017-08-06 17:25] VITALS: BP 98/65
== END 2017-08-06 17:43 | disposition home or self-care (01) ==
LOC: ED 15:26
DX: E86.0 Dehydration (principal); R10.13 Epigastric pain; R11.10 Vomiting, unspecified
CPT/HCPCS: 36415; 80048; 82040; 96361; 96372; 96374; 99284; J2060; J2550; J7030

== ENCOUNTER 2017-08-21 19:53 | Emergency (ER) | payer MEDICAID ==
[~2017-08-21] VITALS: Ht 170.2 cm; Wt 135.5 kg
[2017-08-21] MEDS ORDERED: SODIUM CHLORIDE 0.9% 1,000 ML IV ONE (20:05)
[2017-08-21] MEDS ORDERED: METOCLOPRAMIDE 5 MG/ML, 2ML ONE (20:25)
[2017-08-21] MEDS ORDERED: FAMOTIDINE 20 MG/2 ML ONE (20:25)
[2017-08-21 20:30] LABS: HEMATOCRIT 37.7 % (34.6-47.8); HEMOGLOBIN 12.7 g/dL (11.7-16.4); WHITE BLOOD COUNT 18.2 x10^3/uL (3.4-10)
[2017-08-21] MEDS ORDERED: FAMOTIDINE 20 MG/2 ML IVP ONE (20:30)
[2017-08-21] MEDS ORDERED: SODIUM CHLORIDE 0.9% 1,000ML IVBOLUS ONE (20:30)
[2017-08-21] MEDS ORDERED: METOCLOPRAMIDE 5 MG/ML, 2ML IVPush ONE (20:30)
[2017-08-21] MEDS ORDERED: SODIUM CHLORIDE FLUSH 10ML SYR IVF ONE (20:30)
[2017-08-21] MEDS ORDERED: LORazepam 2 MG/ML, 1ML IVPush ONE ×2 (21:00)
[2017-08-21] MEDS ORDERED: DIPHENHYDRAMINE 50 MG/ML, 1ML IVPush ONE (21:00)
[2017-08-21] MEDS ORDERED: DIPHENHYDRAMINE 50 MG/ML, 1ML ONE (21:00)
[2017-08-21] MEDS ORDERED: LORazepam 2 MG/ML, 1ML ONE (21:01)
[2017-08-21 22:48] VITALS: BP 107/68
== END 2017-08-21 23:44 | disposition home or self-care (01) ==
LOC: ED 21:13
DX: R11.2 Nausea with vomiting, unspecified (principal); G43.A0 Cyclical vomiting, in migraine, not intractable
CPT/HCPCS: 36415; 84703; 85025; 96361; 96374; 96375; 99285; J1200; J2060; J2765; J7030; S0028

== ENCOUNTER 2017-08-22 18:33 | Emergency (ER) | payer MEDICAID ==
[~2017-08-22] VITALS: Ht 170.2 cm; Wt 140.0 kg
[2017-08-22 18:45] VITALS: BP 122/76
[2017-08-22] MEDS ORDERED: DIPHENHYDRAMINE 50 MG/ML, 1ML ONE (19:29)
[2017-08-22] MEDS ORDERED: METOCLOPRAMIDE 5 MG/ML, 2ML ONE (19:29)
[2017-08-22] MEDS ORDERED: FAMOTIDINE 20 MG/2 ML IVP ONE (19:30)
[2017-08-22] MEDS ORDERED: DIPHENHYDRAMINE 50 MG/ML, 1ML IVPush ONE (19:30)
[2017-08-22] MEDS ORDERED: SODIUM CHLORIDE 0.9% 1,000ML IVBOLUS ONE (19:30)
[2017-08-22] MEDS ORDERED: LORazepam 2 MG/ML, 1ML ONE (19:30)
[2017-08-22] MEDS ORDERED: SODIUM CHLORIDE FLUSH 10ML SYR IVF ONE (19:30)
[2017-08-22] MEDS ORDERED: METOCLOPRAMIDE 5 MG/ML, 2ML IVPush ONE (19:30)
[2017-08-22] MEDS ORDERED: LORazepam 2 MG/ML, 1ML IVPush ONE (19:30)
[2017-08-22] MEDS ORDERED: FAMOTIDINE 20 MG/2 ML ONE (19:31)
== END 2017-08-22 21:23 | disposition home or self-care (01) ==
LOC: ED 18:40
DX: G43.A0 Cyclical vomiting, in migraine, not intractable (principal); R10.84 Generalized abdominal pain; E66.9 Obesity, unspecified; F41.9 Anxiety disorder, unspecified
CPT/HCPCS: 96374; 96375; 99284; J1200; J2060; J2765; J7030; S0028

== ENCOUNTER 2017-09-23 10:10 | Observation (INO) | payer MEDICAID ==
[~2017-09-23] VITALS: Ht 170.2 cm; Wt 135.0 kg
[2017-09-23] MEDS ORDERED: ONDA4TAB10 PO (10:21)
[2017-09-23] MEDS ORDERED: METOCLOPRAMIDE 5 MG/ML, 2ML IVPush ONE (10:30)
[2017-09-23] MEDS ORDERED: SODIUM CHLORIDE 0.9% 1,000ML IVBOLUS ONE (10:30)
[2017-09-23] MEDS ORDERED: LORazepam 2 MG/ML, 1ML IVPush ONE (10:30)
[2017-09-23] MEDS ORDERED: SODIUM CHLORIDE FLUSH 10ML SYR IVF ONE (10:30)
[2017-09-23] MEDS ORDERED: DIPHENHYDRAMINE 50 MG/ML, 1ML IVPush ONE (10:30)
[2017-09-23] MEDS ORDERED: FAMOTIDINE 20 MG/2 ML IVP ONE (10:30)
[2017-09-23] MEDS ORDERED: METOCLOPRAMIDE 5 MG/ML, 2ML ONE ×2 (10:33→17:37)
[2017-09-23] MEDS ORDERED: LORazepam 2 MG/ML, 1ML ONE (10:33)
[2017-09-23] MEDS ORDERED: DIPHENHYDRAMINE 50 MG/ML, 1ML ONE (10:33)
[2017-09-23] MEDS ORDERED: FAMOTIDINE 20 MG/2 ML ONE (10:33)
[2017-09-23 10:41] LABS: BASOPHILS # (AUTO) 0.01 x10^3/uL (0-0.1); BASOPHILS % (AUTO) 0 % (0-1); EOSINOPHILS % (AUTO) 0 % (1-7); LYMPHOCYTES # (AUTO) 0.77 x10^3/uL (1-3.4); LYMPHOCYTES % (AUTO) 5 % (22-44); MD NO; MEAN CORPUSCULAR HEMOGLOBIN 28.4 pg (27.0-34.8); MEAN CORPUSCULAR VOLUME 86.2 fL (80-100); MEAN PLATELET VOLUME 9.2 fL (7.4-10.4); MONOCYTES # (AUTO) 0.29 x10^3/uL (0.2-0.8); MONOCYTES % (AUTO) 2 % (2-9); NEUTROPHILS # (AUTO) 15.31 x10^3/uL (1.8-6.8); NEUTROPHILS % (AUTO) 93 % (42-75); PLATELET COUNT 364 x10^3/uL (130-400); RED BLOOD COUNT 4.52 x10^6/uL (3.82-5.3); RED CELL DISTRIBUTION WIDTH 15.8 % (9.6-15.2)
[2017-09-23 10:53] LABS: ALANINE AMINOTRANSFERASE 22 U/L (12-78); ALBUMIN 3.7 g/dL (3.4-5.0); ANION GAP 15 mmol/L (5-15); CALCIUM 8.9 mg/dL (8.5-10.1); CHLORIDE 104 mmol/L (98-107); CREATININE 0.96 mg/dL (0.55-1.02)
[2017-09-23 10:58] LABS: ALKALINE PHOSPHATASE 79 U/L (45-117); BILIRUBIN,TOTAL 0.5 mg/dL (0.2-1.0); TOTAL PROTEIN 8.1 g/dL (6.4-8.2)
[2017-09-23] MEDS ORDERED: HALOPERIDOL 5 MG/ML IV STA (12:13)
[2017-09-23] MEDS ORDERED: SODIUM CHLORIDE 0.9% 1,000 ML IV ONE ×2 (12:13→13:51)
[2017-09-23] MEDS ORDERED: HALOPERIDOL 5 MG/ML ONE (12:38)
[2017-09-23] MEDS ORDERED: ONDANSETRON 2MG/ML, 2ML IVPush ONE (14:00)
[2017-09-23] MEDS ORDERED: ONDANSETRON 2MG/ML, 2ML ONE (14:14)
[2017-09-23] MEDS ORDERED: ONDANSETRON 2MG/ML, 2ML IVPush PRN (16:30)
[2017-09-23] MEDS ORDERED: ENALAPRILAT 1.25 MG/ML, 2ML IVPush PRN (16:30)
[2017-09-23] MEDS ORDERED: ACETAMINOPHEN 325 MG TABLET PO PRN (16:30)
[2017-09-23] MEDS ORDERED: PROMETHAZINE 25 MG SUPP PR PRN (16:30)
[2017-09-23] MEDS ORDERED: DIPHENHYDRAMINE 25 MG CAPSULE PO PRN (16:30)
[2017-09-23] MEDS ORDERED: ONDANSETRON ODT 4 MG PO PRN (16:30)
[2017-09-23] MEDS ORDERED: PROMETHAZINE 25 MG SUPP PR ONE (17:31)
[2017-09-23] MEDS: METOCLOPRAMIDE 5 MG/ML, 2ML IVPush PRN (17:39)
[2017-09-23] MEDS: POTASSIUM CHLORIDE 20 MEQ, MAGNESIUM SULFATE 2 GM, THIAMINE 100 MG, MVI ADULT 10 ML, FO... IV SCH (18:34)
[2017-09-23 19:40] VITALS: BP 138/85
[2017-09-23] MEDS ORDERED: DIPHENHYDRAMINE 50 MG/ML, 1ML IVPush PRN (21:30)
[2017-09-24] MEDS ORDERED: LORazepam 2 MG/ML, 1ML IVPush ONE
[2017-09-24] MEDS: METOCLOPRAMIDE 5 MG/ML, 2ML IVPush PRN (00:03)
[2017-09-24 02:53] VITALS: BP 144/81
[2017-09-24 06:48] LABS: BASOPHILS # (AUTO) 0.03 x10^3/uL (0-0.1); BASOPHILS % (AUTO) 0 % (0-1); EOSINOPHILS # (AUTO) 0.01 x10^3/uL (0-0.4); EOSINOPHILS % (AUTO) 0 % (1-7); LYMPHOCYTES # (AUTO) 2.27 x10^3/uL (1-3.4); LYMPHOCYTES % (AUTO) 14 % (22-44); MD NO; MEAN CORPUSCULAR HGB CONC 33.2 g/dL (32.4-35.8); MEAN CORPUSCULAR VOLUME 87.4 fL (80-100); MONOCYTES # (AUTO) 0.65 x10^3/uL (0.2-0.8); MONOCYTES % (AUTO) 4 % (2-9); NEUTROPHILS # (AUTO) 13.92 x10^3/uL (1.8-6.8); NEUTROPHILS % (AUTO) 82 % (42-75); PLATELET COUNT 358 x10^3/uL (130-400); RED BLOOD COUNT 4.06 x10^6/uL (3.82-5.3); RED CELL DISTRIBUTION WIDTH 15.7 % (9.6-15.2)
[2017-09-24 06:59] VITALS: BP 124/79
[2017-09-24 07:00] LABS: ALANINE AMINOTRANSFERASE 21 U/L (12-78); ALBUMIN 3.3 g/dL (3.4-5.0); ANION GAP 6 mmol/L (5-15); CALCIUM 8.6 mg/dL (8.5-10.1); CHLORIDE 107 mmol/L (98-107); CREATININE 0.72 mg/dL (0.55-1.02)
[2017-09-24 07:11] LABS: ALKALINE PHOSPHATASE 64 U/L (45-117); BILIRUBIN,TOTAL 0.4 mg/dL (0.2-1.0); TOTAL PROTEIN 7.3 g/dL (6.4-8.2)
[2017-09-24 15:34] VITALS: BP 136/81
[2017-09-24] MEDS: POTASSIUM CHLORIDE 20 MEQ, MAGNESIUM SULFATE 2 GM, THIAMINE 100 MG, MVI ADULT 10 ML, FO... IV SCH (16:38)
== END 2017-09-24 18:08 | disposition home or self-care (01) ==
LOC: ED 11:30 → EDIP 15:41 → INTOOBSV 15:41 → 3NE 19:46
PROVIDERS: ADMIT Hospitalist; ATTEND Internal Medicine
DX: R65.10 Systemic inflammatory response syndrome (SIRS) of non-infectious origin without acute organ dysfunction (principal); R10.13 Epigastric pain; R11.2 Nausea with vomiting, unspecified; F12.90 Cannabis use, unspecified, uncomplicated; E66.01 Morbid (severe) obesity due to excess calories; D72.829 Elevated white blood cell count, unspecified; E87.6 Hypokalemia
CPT/HCPCS: 36415; 80053; 83690; 83735; 84100; 84443; 84703; 85025; 96361; 96365; 96366; 96375; 96376; 99285; G0378; J1200; J1630; J2060; J2405; J2765; J3411; J3475; J3480; J7030; Q0163; J7042; S0028

== ENCOUNTER 2017-09-25 02:28 | Emergency (ER) | payer MEDICAID ==
[~2017-09-25] VITALS: Ht 170.2 cm; Wt 130.0 kg
[2017-09-25] MEDS ORDERED: ZIPRASIDONE 20 MG INJ IM ONE ×4 (02:42→03:30)
[2017-09-25] MEDS ORDERED: ONDANSETRON 2MG/ML, 2ML ONE (02:42)
[2017-09-25] MEDS ORDERED: MAALOX/HYOSCYAMINE/LIDOCAINE 45 ML BTL ONE (02:43)
[2017-09-25] MEDS ORDERED: FAMOTIDINE 20 MG/2 ML ONE (02:43)
[2017-09-25 02:50] LABS: BASOPHILS # (AUTO) 0.01 x10^3/uL (0-0.1); BASOPHILS % (AUTO) 0 % (0-1); EOSINOPHILS # (AUTO) 0.01 x10^3/uL (0-0.4); EOSINOPHILS % (AUTO) 0 % (1-7); LYMPHOCYTES # (AUTO) 1.39 x10^3/uL (1-3.4); LYMPHOCYTES % (AUTO) 9 % (22-44); MD NO; MEAN CORPUSCULAR HEMOGLOBIN 28.2 pg (27.0-34.8); MEAN CORPUSCULAR HGB CONC 32.5 g/dL (32.4-35.8); MEAN CORPUSCULAR VOLUME 86.8 fL (80-100); MEAN PLATELET VOLUME 9.1 fL (7.4-10.4); MONOCYTES # (AUTO) 0.56 x10^3/uL (0.2-0.8); MONOCYTES % (AUTO) 4 % (2-9); NEUTROPHILS # (AUTO) 13.62 x10^3/uL (1.8-6.8); NEUTROPHILS % (AUTO) 87 % (42-75); PLATELET COUNT 410 x10^3/uL (130-400); RED BLOOD COUNT 4.51 x10^6/uL (3.82-5.3); RED CELL DISTRIBUTION WIDTH 16.3 % (9.6-15.2)
[2017-09-25] MEDS ORDERED: ONDANSETRON 2MG/ML, 2ML IVPush ONE (03:00)
[2017-09-25] MEDS ORDERED: SODIUM CHLORIDE FLUSH 10ML SYR IVF ONE (03:00)
[2017-09-25] MEDS ORDERED: FAMOTIDINE 20 MG/2 ML IVP ONE (03:00)
[2017-09-25] MEDS ORDERED: MAALOX/HYOSCYAMINE/LIDOCAINE 45 ML BTL PO ONE (03:00)
[2017-09-25] MEDS ORDERED: SODIUM CHLORIDE 0.9% 1,000ML IVBOLUS ONE (03:00)
[2017-09-25 03:02] LABS: ALANINE AMINOTRANSFERASE 38 U/L (12-78); ALBUMIN 3.7 g/dL (3.4-5.0); ANION GAP 10 mmol/L (5-15); CALCIUM 8.9 mg/dL (8.5-10.1); CHLORIDE 102 mmol/L (98-107); CREATININE 0.88 mg/dL (0.55-1.02)
[2017-09-25 03:05] LABS: ALKALINE PHOSPHATASE 74 U/L (45-117); BILIRUBIN,TOTAL 0.4 mg/dL (0.2-1.0)
[2017-09-25 03:37] VITALS: BP 163/96
[2017-09-25] MEDS ORDERED: POTASSIUM CHLORIDE 20 MEQ TAB.ER.PRT PO ONE (04:00)
[2017-09-25] MEDS ORDERED: POTASSIUM CHLORIDE 20 MEQ TAB.ER.PRT ONE (04:45)
[2017-09-25 04:56] LABS: HCG UR SG 1.007 (1.003-1.030); MICROSCOPIC NOT IND
[2017-09-25 04:59] LABS: CULTURE INDICATED? NO
== END 2017-09-25 05:46 | disposition home or self-care (01) ==
LOC: ED 03:22
DX: G89.29 Other chronic pain (principal); R10.9 Unspecified abdominal pain; R11.2 Nausea with vomiting, unspecified
CPT/HCPCS: 36415; 80053; 81003; 81025; 83690; 85025; 93005; 96361; 96372; 96374; 96375; 99285; J2405; J3486; J7030; S0028

== ENCOUNTER 2017-10-17 14:21 | Emergency (ER) | payer MEDICAID ==
[~2017-10-17] VITALS: Ht 170.2 cm; Wt 120.0 kg
[2017-10-17] MEDS ORDERED: SODIUM CHLORIDE 0.9% 1,000ML IVBOLUS ONE (15:00)
[2017-10-17] MEDS ORDERED: DIPHENHYDRAMINE 50 MG/ML, 1ML IVPush ONE (15:00)
[2017-10-17] MEDS ORDERED: PLEASE ENTER HEIGHT AND WEIGHT MC SCH (15:00)
[2017-10-17] MEDS ORDERED: METOCLOPRAMIDE 5 MG/ML, 2ML IVPush ONE (15:00)
[2017-10-17] MEDS ORDERED: SODIUM CHLORIDE FLUSH 10ML SYR IVF ONE (15:00)
[2017-10-17] MEDS ORDERED: FAMOTIDINE 20 MG/2 ML IVP ONE (15:00)
[2017-10-17] MEDS ORDERED: METOCLOPRAMIDE 5 MG/ML, 2ML ONE (15:09)
[2017-10-17] MEDS ORDERED: FAMOTIDINE 20 MG/2 ML ONE (15:09)
[2017-10-17] MEDS ORDERED: DIPHENHYDRAMINE 50 MG/ML, 1ML ONE (15:09)
[2017-10-17 15:14] LABS: MEAN CORPUSCULAR HEMOGLOBIN 28.4 pg (27.0-34.8); MEAN CORPUSCULAR HGB CONC 33.1 g/dL (32.4-35.8); MEAN CORPUSCULAR VOLUME 85.8 fL (80-100); MEAN PLATELET VOLUME 9.1 fL (7.4-10.4); PLATELET COUNT 418 x10^3/uL (130-400); RED BLOOD COUNT 4.55 x10^6/uL (3.82-5.3); RED CELL DISTRIBUTION WIDTH 15.9 % (9.6-15.2)
[2017-10-17 15:27] LABS: ALBUMIN 3.9 g/dL (3.4-5.0); ANION GAP 14 mmol/L (5-15); CALCIUM 8.8 mg/dL (8.5-10.1); CHLORIDE 102 mmol/L (98-107)
[2017-10-17 15:30] LABS: ALANINE AMINOTRANSFERASE 25 U/L (12-78); ALKALINE PHOSPHATASE 79 U/L (45-117); BILIRUBIN,TOTAL 0.5 mg/dL (0.2-1.0); CREATININE 0.88 mg/dL (0.55-1.02); TOTAL PROTEIN 8.8 g/dL (6.4-8.2)
[2017-10-17 15:47] LABS: BASOPHILS # (AUTO) 0.03 x10^3/uL (0-0.1); BASOPHILS % (AUTO) 0 % (0-1); EOSINOPHILS % (AUTO) 0 % (1-7); LYMPHOCYTES # (AUTO) 0.77 x10^3/uL (1-3.4); LYMPHOCYTES % (AUTO) 4 % (22-44); MD SCAN; MONOCYTES # (AUTO) 0.11 x10^3/uL (0.2-0.8); MONOCYTES % (AUTO) 1 % (2-9); NEUTROPHILS # (AUTO) 17.24 x10^3/uL (1.8-6.8); NEUTROPHILS % (AUTO) 95 % (42-75)
[2017-10-17] MEDS ORDERED: ONDANSETRON 2MG/ML, 2ML ONE (16:37)
[2017-10-17] MEDS ORDERED: HALOPERIDOL 5 MG/ML ONE (16:37)
[2017-10-17] MEDS ORDERED: HALOPERIDOL 5 MG/ML IM ONE (17:00)
[2017-10-17] MEDS ORDERED: HALOPERIDOL 5 MG/ML IV ONE (17:00)
[2017-10-17] MEDS ORDERED: ONDANSETRON 2MG/ML, 2ML IVPush ONE (17:00)
[2017-10-17 18:22] VITALS: BP 125/74
== END 2017-10-17 18:53 | disposition home or self-care (01) ==
LOC: ED 14:32
DX: G43.A1 Cyclical vomiting, in migraine, intractable (principal); E86.9 Volume depletion, unspecified; G43.A0 Cyclical vomiting, in migraine, not intractable
CPT/HCPCS: 36415; 80053; 83690; 84703; 85025; 96361; 96372; 96374; 96375; 99285; J1200; J1630; J2405; J2765; J7030; S0028

== ENCOUNTER 2017-10-27 13:29 | Emergency (ER) | payer MEDICAID ==
[~2017-10-27] VITALS: Ht 170.2 cm; Wt 125.0 kg
[2017-10-27] MEDS ORDERED: ONDANSETRON 2MG/ML, 2ML IVPush ONE (14:30)
[2017-10-27] MEDS ORDERED: SODIUM CHLORIDE 0.9% 1,000ML IVBOLUS ONE (14:30)
[2017-10-27] MEDS ORDERED: SODIUM CHLORIDE FLUSH 10ML SYR IVF ONE (14:30)
[2017-10-27] MEDS ORDERED: FAMOTIDINE 20 MG/2 ML IVP ONE (14:30)
[2017-10-27 14:44] LABS: BASOPHILS # (AUTO) 0.02 x10^3/uL (0-0.1); BASOPHILS % (AUTO) 0 % (0-1); EOSINOPHILS % (AUTO) 0 % (1-7); LYMPHOCYTES # (AUTO) 1.53 x10^3/uL (1-3.4); LYMPHOCYTES % (AUTO) 9 % (22-44); MD NO; MEAN CORPUSCULAR HEMOGLOBIN 28.2 pg (27.0-34.8); MEAN CORPUSCULAR HGB CONC 32.4 g/dL (32.4-35.8); MEAN CORPUSCULAR VOLUME 86.9 fL (80-100); MEAN PLATELET VOLUME 9.4 fL (7.4-10.4); MONOCYTES # (AUTO) 0.65 x10^3/uL (0.2-0.8); MONOCYTES % (AUTO) 4 % (2-9); NEUTROPHILS # (AUTO) 14.04 x10^3/uL (1.8-6.8); NEUTROPHILS % (AUTO) 86 % (42-75); PLATELET COUNT 458 x10^3/uL (130-400); RED BLOOD COUNT 4.88 x10^6/uL (3.82-5.3)
[2017-10-27 14:56] LABS: ALANINE AMINOTRANSFERASE 20 U/L (12-78); ALBUMIN 3.9 g/dL (3.4-5.0); ANION GAP 13 mmol/L (5-15); CALCIUM 9.3 mg/dL (8.5-10.1); CHLORIDE 102 mmol/L (98-107); CREATININE 1.09 mg/dL (0.55-1.02)
[2017-10-27 15:01] LABS: ALKALINE PHOSPHATASE 79 U/L (45-117); BILIRUBIN,TOTAL 0.5 mg/dL (0.2-1.0); TOTAL PROTEIN 8.2 g/dL (6.4-8.2)
[2017-10-27] MEDS ORDERED: LORazepam 2 MG/ML, 1ML IVPush ONE (17:00)
[2017-10-27] MEDS ORDERED: ONDANSETRON 2MG/ML, 2ML ONE (17:33)
[2017-10-27] MEDS ORDERED: LORazepam 2 MG/ML, 1ML ONE (17:34)
[2017-10-27 18:26] VITALS: BP 128/77
[2017-10-27] MEDS ORDERED: PROMETHAZINE 25 MG/ML, 1ML ONE (19:19)
[2017-10-27] MEDS ORDERED: PROMETHAZINE 25 MG/ML, 1ML IM ONE (19:30)
[2017-10-27 19:36] LABS: MICROSCOPIC NOT IND
[2017-10-27 19:45] LABS: CULTURE INDICATED? NO
== END 2017-10-27 19:58 | disposition home or self-care (01) ==
LOC: ED 17:04
DX: F12.20 Cannabis dependence, uncomplicated (principal); R11.2 Nausea with vomiting, unspecified
CPT/HCPCS: 36415; 76700; 80053; 81003; 83690; 84703; 85025; 96361; 96372; 96374; 96375; 99285; J2060; J2405; J2550; J7030; S0028

== ENCOUNTER 2017-12-02 10:29 | Inpatient (IN) | payer MEDICAID ==
[~2017-12-02] VITALS: Ht 170.2 cm; Wt 124.8 kg
[~2017-12-02 10:29] MED LIST changes: +DIPH12.532 PO; +HALO5TAB5 PO; +METO5TAB57 PO; +PROM12.553 RC
[2017-12-02] MEDS ORDERED: SODIUM CHLORIDE 0.9% 1,000 ML IV ONE ×2 (10:57→16:20)
[2017-12-02] MEDS ORDERED: ZIPRASIDONE 20 MG INJ IM ONE ×2 (11:00→11:07)
[2017-12-02] MEDS ORDERED: SODIUM CHLORIDE 0.9% 1,000ML IVBOLUS ONE (11:00)
[2017-12-02] MEDS ORDERED: ONDANSETRON 2MG/ML, 2ML ONE ×2 (11:07→17:21)
[2017-12-02] MEDS ORDERED: FAMOTIDINE 20 MG/2 ML ONE (11:07)
[2017-12-02 11:22] LABS: BASOPHILS # (AUTO) 0.02 x10^3/uL (0-0.1); BASOPHILS % (AUTO) 0 % (0-1); EOSINOPHILS % (AUTO) 0 % (1-7); LYMPHOCYTES # (AUTO) 0.71 x10^3/uL (1-3.4); LYMPHOCYTES % (AUTO) 5 % (22-44); MD NO; MEAN CORPUSCULAR HEMOGLOBIN 29.1 pg (27.0-34.8); MEAN CORPUSCULAR HGB CONC 33.5 g/dL (32.4-35.8); MEAN CORPUSCULAR VOLUME 86.8 fL (80-100); MEAN PLATELET VOLUME 9.1 fL (7.4-10.4); MONOCYTES # (AUTO) 0.17 x10^3/uL (0.2-0.8); MONOCYTES % (AUTO) 1 % (2-9); NEUTROPHILS # (AUTO) 14.16 x10^3/uL (1.8-6.8); NEUTROPHILS % (AUTO) 94 % (42-75); PLATELET COUNT 389 x10^3/uL (130-400); RED BLOOD COUNT 4.39 x10^6/uL (3.82-5.3); RED CELL DISTRIBUTION WIDTH 15.8 % (9.6-15.2)
[2017-12-02] MEDS ORDERED: ONDANSETRON 2MG/ML, 2ML IVPush ONE (11:30)
[2017-12-02] MEDS ORDERED: FAMOTIDINE 20 MG/2 ML IVP ONE (11:30)
[2017-12-02 11:32] LABS: ALANINE AMINOTRANSFERASE 21 U/L (12-78); ALBUMIN 3.7 g/dL (3.4-5.0); ANION GAP 12 mmol/L (5-15); CALCIUM 8.9 mg/dL (8.5-10.1); CHLORIDE 104 mmol/L (98-107); CREATININE 1.07 mg/dL (0.55-1.02)
[2017-12-02 11:36] LABS: ALKALINE PHOSPHATASE 77 U/L (45-117); BILIRUBIN,TOTAL 0.5 mg/dL (0.2-1.0); TOTAL PROTEIN 8.1 g/dL (6.4-8.2)
[2017-12-02 13:29] LABS: CULTURE INDICATED? YES; MICROSCOPIC INDICATED
[2017-12-02] MEDS ORDERED: PROMETHAZINE 25 MG/ML, 1ML IM ONE (14:00)
[2017-12-02] MEDS ORDERED: DIPHENHYDRAMINE 50 MG/ML, 1ML IV ONE (14:00)
[2017-12-02] MEDS ORDERED: DIPHENHYDRAMINE 50 MG/ML, 1ML ONE (14:10)
[2017-12-02] MEDS ORDERED: PROMETHAZINE 25 MG/ML, 1ML ONE (14:10)
[2017-12-02] MEDS ORDERED: SODIUM CHLORIDE FLUSH 10ML SYR IVF PRN (16:30)
[2017-12-02] MEDS ORDERED: ONDANSETRON ODT 4 MG PO PRN (17:00)
[2017-12-02] MEDS ORDERED: ENOXAPARIN 40 MG/0.4 ML SQ SCH (17:00)
[2017-12-02] MEDS ORDERED: LABETALOL 5MG/ML, 20ML IVPush PRN (17:00)
[2017-12-02] MEDS ORDERED: ENOXAPARIN 40 MG/0.4 ML ONE (17:21)
[2017-12-02] MEDS ORDERED: PANTOPRAZOLE 40 MG IV ONE (17:21)
[2017-12-02 17:27] LABS: FREE T4 (FREE THYROXINE) 1.36 ng/dL (0.76-1.46)
[2017-12-02] MEDS: ONDANSETRON 2MG/ML, 2ML IVPush PRN (17:28)
[2017-12-02] MEDS: PANTOPRAZOLE 40 MG IV IVPush SCH (17:28)
[2017-12-02] MEDS ORDERED: MAALOX/HYOSCYAMINE/LIDOCAINE 45 ML BTL PO ONE (17:30)
[2017-12-02] MEDS: D5%-0.45% NACL 1,000 ML IV SCH (18:38)
[2017-12-02 19:57] VITALS: BP 124/71
[2017-12-02] MEDS: HYDROcodone/APAP 5/325 TABLET PO PRN (21:36)
[2017-12-02] MEDS ORDERED: KETOROLAC 30 MG/1 ML IM PRN (23:00)
[2017-12-03] MEDS: ONDANSETRON 2MG/ML, 2ML IVPush PRN ×2 (03:09→09:16)
[2017-12-03] MEDS: KETOROLAC 30 MG/1 ML IV PRN ×2 (03:09→09:17)
[2017-12-03] MEDS: D5%-0.45% NACL 1,000 ML IV SCH ×2 (03:10→13:49)
[2017-12-03 03:13] VITALS: BP 169/102
[2017-12-03] MEDS: PROMETHAZINE 12.5 MG SUPP PR PRN ×2 (04:18→13:48)
[2017-12-03] MEDS: HYDROcodone/APAP 5/325 TABLET PO PRN ×3 (04:23→13:48)
[2017-12-03 05:07] LABS: MEAN CORPUSCULAR HEMOGLOBIN 28.7 pg (27.0-34.8); MEAN CORPUSCULAR HGB CONC 32.7 g/dL (32.4-35.8); MEAN CORPUSCULAR VOLUME 87.8 fL (80-100); MEAN PLATELET VOLUME 9.1 fL (7.4-10.4); PLATELET COUNT 360 x10^3/uL (130-400)
[2017-12-03 05:13] LABS: ALBUMIN 3.4 g/dL (3.4-5.0); ANION GAP 12 mmol/L (5-15); CALCIUM 8.5 mg/dL (8.5-10.1); CHLORIDE 104 mmol/L (98-107)
[2017-12-03 05:17] LABS: ALANINE AMINOTRANSFERASE 18 U/L (12-78); ALKALINE PHOSPHATASE 64 U/L (45-117); BILIRUBIN,TOTAL 0.5 mg/dL (0.2-1.0); CREATININE 0.95 mg/dL (0.55-1.02); TOTAL PROTEIN 7.6 g/dL (6.4-8.2)
[2017-12-03 05:56] LABS: BASOPHILS # (AUTO) 0.04 x10^3/uL (0-0.1); BASOPHILS % (AUTO) 0 % (0-1); EOSINOPHILS # (AUTO) 0.01 x10^3/uL (0-0.4); EOSINOPHILS % (AUTO) 0 % (1-7); LYMPHOCYTES # (AUTO) 1.65 x10^3/uL (1-3.4); LYMPHOCYTES % (AUTO) 10 % (22-44); MD SCAN; MONOCYTES # (AUTO) 0.88 x10^3/uL (0.2-0.8); MONOCYTES % (AUTO) 5 % (2-9); NEUTROPHILS # (AUTO) 13.62 x10^3/uL (1.8-6.8); NEUTROPHILS % (AUTO) 84 % (42-75)
[2017-12-03 07:40] VITALS: BP 130/84
[2017-12-03] MEDS ORDERED: POTASSIUM CHLORIDE 20 MEQ TAB.ER.PRT PO ONE ×2 (08:30→11:30)
[2017-12-03] MEDS ORDERED: SODIUM PHOSPHATE 4 MEQ/ML IV SCH (08:30)
[2017-12-03] MEDS ORDERED: MAGNESIUM SULFATE PMX 2GM/50ML 50 ML IV ONE (08:30)
[2017-12-03] MEDS ORDERED: SODIUM PHOSPHATE 30 MMOL in SODIUM CHLORIDE 0.9% 500 ML IV ONE (09:00)
[2017-12-03] MEDS: PANTOPRAZOLE 40 MG IV IVPush SCH (09:16)
[2017-12-03 13:37] VITALS: BP 119/74
== END 2017-12-03 16:23 | disposition left against medical advice (07) | DRG 392 ==
LOC: ED 10:33 → EDIP 16:20 → 4NOR 17:53
PROVIDERS: ADMIT Internal Medicine; ATTEND Internal Medicine
DX: R11.2 Nausea with vomiting, unspecified (principal); E66.01 Morbid (severe) obesity due to excess calories; Z68.41 Body mass index [BMI] 40.0-44.9, adult; D72.829 Elevated white blood cell count, unspecified; E86.0 Dehydration; K31.84 Gastroparesis; E87.6 Hypokalemia; F12.10 Cannabis abuse, uncomplicated; F41.9 Anxiety disorder, unspecified; R82.71 Bacteriuria; R79.89 Other specified abnormal findings of blood chemistry; Z53.21 Procedure and treatment not carried out due to patient leaving prior to being seen by health care provider
CPT/HCPCS: 36415; 74176; 80053; 81001; 83690; 83735; 84100; 84439; 84703; 85025; 87086; 96372; 96374; 96375; 96376; J1650; J1885; J2405; J2550; J3486; Q0162; C9113; J1200; J7030; J7040; S0028

== ENCOUNTER 2017-12-15 06:20 | Emergency (ER) | payer MEDICAID ==
[~2017-12-15] VITALS: Ht 170.2 cm; Wt 114.0 kg
[2017-12-15] MEDS ORDERED: ZIPRASIDONE 20 MG INJ IM ONE ×2 (07:00)
[2017-12-15 07:17] LABS: ALANINE AMINOTRANSFERASE 26 U/L (12-78); ALBUMIN 3.9 g/dL (3.4-5.0); ANION GAP 14 mmol/L (5-15); CALCIUM 9.4 mg/dL (8.5-10.1); CHLORIDE 101 mmol/L (98-107)
[2017-12-15 07:20] LABS: BASOPHILS # (AUTO) 0.02 x10^3/uL (0-0.1); BASOPHILS % (AUTO) 0 % (0-1); EOSINOPHILS % (AUTO) 0 % (1-7); LYMPHOCYTES # (AUTO) 0.77 x10^3/uL (1-3.4); LYMPHOCYTES % (AUTO) 4 % (22-44); MD NO; MEAN CORPUSCULAR HEMOGLOBIN 28.7 pg (27.0-34.8); MEAN CORPUSCULAR HGB CONC 32.9 g/dL (32.4-35.8); MEAN CORPUSCULAR VOLUME 87.3 fL (80-100); MEAN PLATELET VOLUME 9.1 fL (7.4-10.4); MONOCYTES # (AUTO) 0.32 x10^3/uL (0.2-0.8); MONOCYTES % (AUTO) 2 % (2-9); NEUTROPHILS # (AUTO) 16.78 x10^3/uL (1.8-6.8); NEUTROPHILS % (AUTO) 94 % (42-75); PLATELET COUNT 463 x10^3/uL (130-400); RED BLOOD COUNT 4.66 x10^6/uL (3.82-5.3); RED CELL DISTRIBUTION WIDTH 15.5 % (9.6-15.2)
[2017-12-15 07:22] LABS: ALKALINE PHOSPHATASE 71 U/L (45-117); BILIRUBIN,TOTAL 0.4 mg/dL (0.2-1.0); TOTAL PROTEIN 8.6 g/dL (6.4-8.2)
[2017-12-15] MEDS ORDERED: METOCLOPRAMIDE 5 MG/ML, 2ML IVPush ONE (08:00)
[2017-12-15] MEDS ORDERED: METOCLOPRAMIDE 5 MG/ML, 2ML ONE (08:01)
[2017-12-15 09:59] VITALS: BP 111/59
== END 2017-12-15 10:03 | disposition home or self-care (01) ==
LOC: ED 06:34
DX: R11.10 Vomiting, unspecified (principal); G43.A0 Cyclical vomiting, in migraine, not intractable
CPT/HCPCS: 36415; 80053; 83690; 84703; 85025; 96372; 96374; 99284; J2765; J3486

== ENCOUNTER 2017-12-18 19:10 | Emergency (ER) | payer MEDICAID ==
[~2017-12-18] VITALS: Ht 170.2 cm; Wt 118.0 kg
[2017-12-18] MEDS ORDERED: DIPHENHYDRAMINE 50 MG/ML, 1ML ONE (19:47)
[2017-12-18] MEDS ORDERED: METOCLOPRAMIDE 5 MG/ML, 2ML ONE (19:47)
[2017-12-18 19:52] LABS: BASOPHILS # (AUTO) 0.03 x10^3/uL (0-0.1); BASOPHILS % (AUTO) 0 % (0-1); EOSINOPHILS # (AUTO) 0.01 x10^3/uL (0-0.4); EOSINOPHILS % (AUTO) 0 % (1-7); LYMPHOCYTES # (AUTO) 1.55 x10^3/uL (1-3.4); LYMPHOCYTES % (AUTO) 11 % (22-44); MD NO; MEAN CORPUSCULAR HEMOGLOBIN 29.2 pg (27.0-34.8); MEAN CORPUSCULAR HGB CONC 33.3 g/dL (32.4-35.8); MEAN CORPUSCULAR VOLUME 87.7 fL (80-100); MEAN PLATELET VOLUME 8.6 fL (7.4-10.4); MONOCYTES % (AUTO) 4 % (2-9); NEUTROPHILS # (AUTO) 12.44 x10^3/uL (1.8-6.8); NEUTROPHILS % (AUTO) 86 % (42-75); PLATELET COUNT 367 x10^3/uL (130-400); RED BLOOD COUNT 4.35 x10^6/uL (3.82-5.3)
[2017-12-18] MEDS ORDERED: DIPHENHYDRAMINE 50 MG/ML, 1ML IVPush ONE (20:00)
[2017-12-18] MEDS ORDERED: SODIUM CHLORIDE FLUSH 10ML SYR IVF ONE (20:00)
[2017-12-18] MEDS ORDERED: METOCLOPRAMIDE 5 MG/ML, 2ML IVPush ONE (20:00)
[2017-12-18] MEDS ORDERED: SODIUM CHLORIDE 0.9% 1,000ML IVBOLUS ONE (20:00)
[2017-12-18 20:03] VITALS: BP 110/73
[2017-12-18 20:03] LABS: ALANINE AMINOTRANSFERASE 28 U/L (12-78); ALBUMIN 3.4 g/dL (3.4-5.0); ANION GAP 10 mmol/L (5-15); CALCIUM 8.7 mg/dL (8.5-10.1); CHLORIDE 101 mmol/L (98-107); CREATININE 0.83 mg/dL (0.55-1.02)
[2017-12-18 20:06] LABS: ALKALINE PHOSPHATASE 65 U/L (45-117); BILIRUBIN,TOTAL 0.5 mg/dL (0.2-1.0); TOTAL PROTEIN 7.5 g/dL (6.4-8.2)
== END 2017-12-18 21:12 | disposition home or self-care (01) ==
LOC: ED 21:09
DX: R11.2 Nausea with vomiting, unspecified (principal); G43.A0 Cyclical vomiting, in migraine, not intractable; E66.9 Obesity, unspecified
CPT/HCPCS: 36415; 80053; 85025; 96361; 96374; 96375; 99284; J1200; J2765; J7030

== ENCOUNTER 2018-01-07 18:45 | Emergency (ER) | payer MEDICAID ==
[~2018-01-07] VITALS: Ht 154.9 cm; Wt 115.0 kg
[2018-01-07] MEDS ORDERED: PROM12.553 RC (19:01)
[2018-01-07] MEDS ORDERED: DIAZEPAM 5 MG TABLET ONE (19:11)
[2018-01-07] MEDS ORDERED: MAALOX/HYOSCYAMINE/LIDOCAINE 45 ML BTL ONE (19:11)
[2018-01-07 19:17] LABS: BASOPHILS % (AUTO) 0 % (0-1); EOSINOPHILS # (AUTO) 0.01 x10^3/uL (0-0.4); EOSINOPHILS % (AUTO) 0 % (1-7); LYMPHOCYTES # (AUTO) 1.92 x10^3/uL (1-3.4); LYMPHOCYTES % (AUTO) 11 % (22-44); MD NO; MEAN CORPUSCULAR HEMOGLOBIN 29.1 pg (27.0-34.8); MEAN CORPUSCULAR HGB CONC 32.9 g/dL (32.4-35.8); MEAN CORPUSCULAR VOLUME 88.5 fL (80-100); MEAN PLATELET VOLUME 9.7 fL (7.4-10.4); MONOCYTES # (AUTO) 0.59 x10^3/uL (0.2-0.8); MONOCYTES % (AUTO) 3 % (2-9); NEUTROPHILS # (AUTO) 15.11 x10^3/uL (1.8-6.8); NEUTROPHILS % (AUTO) 86 % (42-75); PLATELET COUNT 371 x10^3/uL (130-400); RED BLOOD COUNT 4.32 x10^6/uL (3.82-5.3); RED CELL DISTRIBUTION WIDTH 15.6 % (9.6-15.2)
[2018-01-07 19:27] LABS: ALBUMIN 3.6 g/dL (3.4-5.0); ANION GAP 17 mmol/L (5-15); CALCIUM 8.7 mg/dL (8.5-10.1); CHLORIDE 107 mmol/L (98-107); CREATININE 1.06 mg/dL (0.55-1.02)
[2018-01-07] MEDS ORDERED: DIAZEPAM 5 MG/ML, 2ML IV ONE (19:30)
[2018-01-07] MEDS ORDERED: DIAZEPAM 5 MG TABLET PO ONE (19:30)
[2018-01-07] MEDS ORDERED: MAALOX/HYOSCYAMINE/LIDOCAINE 45 ML BTL PO ONE (19:30)
[2018-01-07] MEDS ORDERED: ZIPRASIDONE 20 MG INJ IM ONE ×4 (19:30→20:00)
[2018-01-07] MEDS ORDERED: CAPSAICIN CRM 0.025%, 60GM TP ONE (20:00)
[2018-01-07 21:32] VITALS: BP 127/79
== END 2018-01-07 21:38 | disposition home or self-care (01) ==
LOC: ED 19:35
DX: G43.A0 Cyclical vomiting, in migraine, not intractable (principal); R10.84 Generalized abdominal pain
CPT/HCPCS: 36415; 80048; 82040; 84703; 85025; 96372; 99284; J3486

== ENCOUNTER 2018-01-27 06:24 | Emergency (ER) | payer MEDICAID ==
[~2018-01-27] VITALS: Ht 170.2 cm; Wt 118.2 kg
[2018-01-27] MEDS ORDERED: DIPHENHYDRAMINE 50 MG/ML, 1ML IVPush ONE (06:30)
[2018-01-27] MEDS ORDERED: HALOPERIDOL 5 MG/ML IM ONE (06:30)
[2018-01-27] MEDS ORDERED: DIPHENHYDRAMINE 50 MG/ML, 1ML ONE (06:32)
[2018-01-27] MEDS ORDERED: HALOPERIDOL 5 MG/ML ONE (06:32)
[2018-01-27 06:49] LABS: BASOPHILS # (AUTO) 0.04 x10^3/uL (0-0.1); BASOPHILS % (AUTO) 0 % (0-1); EOSINOPHILS # (AUTO) 0.04 x10^3/uL (0-0.4); EOSINOPHILS % (AUTO) 0 % (1-7); LYMPHOCYTES # (AUTO) 2.03 x10^3/uL (1-3.4); LYMPHOCYTES % (AUTO) 13 % (22-44); MD NO; MEAN CORPUSCULAR HEMOGLOBIN 28.7 pg (27.0-34.8); MEAN CORPUSCULAR HGB CONC 33.2 g/dL (32.4-35.8); MEAN CORPUSCULAR VOLUME 86.4 fL (80-100); MEAN PLATELET VOLUME 9.1 fL (7.4-10.4); MONOCYTES # (AUTO) 0.62 x10^3/uL (0.2-0.8); MONOCYTES % (AUTO) 4 % (2-9); NEUTROPHILS # (AUTO) 13.49 x10^3/uL (1.8-6.8); NEUTROPHILS % (AUTO) 83 % (42-75); PLATELET COUNT 377 x10^3/uL (130-400); RED BLOOD COUNT 4.55 x10^6/uL (3.82-5.3); RED CELL DISTRIBUTION WIDTH 15.1 % (9.6-15.2)
[2018-01-27 07:01] LABS: ALANINE AMINOTRANSFERASE 19 U/L (12-78); ALBUMIN 3.4 g/dL (3.4-5.0); ANION GAP 14 mmol/L (5-15); CHLORIDE 103 mmol/L (98-107); CREATININE 0.97 mg/dL (0.55-1.02)
[2018-01-27 07:06] LABS: ALKALINE PHOSPHATASE 74 U/L (45-117); BILIRUBIN,TOTAL 0.3 mg/dL (0.2-1.0); TOTAL PROTEIN 7.7 g/dL (6.4-8.2)
[2018-01-27] MEDS ORDERED: METOCLOPRAMIDE 5 MG/ML, 2ML IVPush ONE (08:30)
[2018-01-27] MEDS ORDERED: METOCLOPRAMIDE 5 MG/ML, 2ML ONE (08:35)
[2018-01-27 09:00] VITALS: BP 145/97
== END 2018-01-27 09:02 | disposition home or self-care (01) ==
LOC: ED 08:38
DX: R10.84 Generalized abdominal pain (principal); R11.14 Bilious vomiting; R11.2 Nausea with vomiting, unspecified; E66.9 Obesity, unspecified
CPT/HCPCS: 36415; 80053; 83690; 84703; 85025; 96372; 96374; 96375; 99284; J1200; J1630; J2765

== ENCOUNTER 2018-06-21 12:53 | Inpatient (IN) | payer MEDICAID, OTHER ==
[~2018-06-21] VITALS: Ht 170.2 cm; Wt 118.4 kg
[2018-06-21] MEDS ORDERED: METOCLOPRAMIDE 5 MG/ML, 2ML ONE (13:19)
[2018-06-21] MEDS ORDERED: ZIPRASIDONE 20 MG INJ IM ONE ×2 (13:20→13:30)
[2018-06-21] MEDS ORDERED: SODIUM CHLORIDE 0.9% 1,000ML IVBOLUS ONE ×2 (13:30→17:00)
[2018-06-21] MEDS ORDERED: METOCLOPRAMIDE 5 MG/ML, 2ML IVPush ONE (13:30)
[2018-06-21] MEDS ORDERED: SODIUM CHLORIDE FLUSH 10ML SYR IVF ONE (13:30)
[2018-06-21 13:51] LABS: ALANINE AMINOTRANSFERASE 29 U/L (12-78); ALBUMIN 3.7 g/dL (3.4-5.0); ANION GAP 19 mmol/L (5-15); CALCIUM 8.6 mg/dL (8.5-10.1); CHLORIDE 105 mmol/L (98-107); CREATININE 1.05 mg/dL (0.55-1.02)
[2018-06-21 13:53] LABS: ALKALINE PHOSPHATASE 77 U/L (45-117); BILIRUBIN,TOTAL 0.3 mg/dL (0.2-1.0); TOTAL PROTEIN 8.2 g/dL (6.4-8.2)
[2018-06-21 14:05] LABS: MEAN CORPUSCULAR HEMOGLOBIN 29.7 pg (27.0-34.8); MEAN CORPUSCULAR HGB CONC 33.3 g/dL (32.4-35.8); MEAN CORPUSCULAR VOLUME 89.3 fL (80-100); RED BLOOD COUNT 4.31 x10^6/uL (3.82-5.3); RED CELL DISTRIBUTION WIDTH 14.2 % (9.6-15.2)
[2018-06-21 14:06] LABS: MEAN PLATELET VOLUME 9.3 fL (7.4-10.4); PLATELET COUNT 263 x10^3/uL (130-400)
[2018-06-21 14:07] LABS: MD YES
[2018-06-21 14:09] LABS: BAND#(MANUAL) 0.19 x10^3/uL; BANDS%(MANUAL) 1 % (0-7); LYMPHS% (MANUAL) 7 % (22-44); MONOS#(MANUAL) 1.67 x10^3/uL (0.3-2.7); MONOS% (MANUAL) 9 % (2-9); REACTIVE LYMPHS # (MANUAL) 0.19 x10^3/uL (0-0); REACTIVE LYMPHS % (MANUAL) 1 % (0-0); SEG#(MANUAL) 15.17 x10^3/uL (1.8-6.8); SEGS% (MANUAL) 82 % (42-75)
[2018-06-21 14:11] LABS: <PLATELET ESTIMATE> ADEQUATE; <RBC MORPHOLOGY> NORMAL
[2018-06-21 14:12] LABS: LARGE PLATELETS 1+
[2018-06-21] MEDS ORDERED: MORPHINE SULFATE 4 MG/ML, 1ML ONE (14:14)
[2018-06-21] MEDS ORDERED: MORPHINE SULFATE 4 MG/ML, 1ML IVPush PRN (14:30)
[2018-06-21] MEDS ORDERED: PROMETHAZINE 25 MG/ML, 1ML ONE (16:29)
[2018-06-21] MEDS ORDERED: PROMETHAZINE 25 MG/ML, 1ML IM ONE (16:30)
[2018-06-21] MEDS ORDERED: SODIUM CHLORIDE 0.9% 1,000 ML IV SCH (17:13)
[2018-06-21] MEDS ORDERED: METOCLOPRAMIDE 5 MG/ML, 2ML IVPush PRN (17:30)
[2018-06-21] MEDS ORDERED: ONDANSETRON ODT 4 MG PO PRN (17:30)
[2018-06-21] MEDS: ONDANSETRON 2MG/ML, 2ML IVPush PRN (20:41)
[2018-06-21] MEDS: KETOROLAC 30 MG/1 ML IVPush PRN (20:41)
[2018-06-21] MEDS: FAMOTIDINE 20 MG/2 ML IVPush SCH (23:55)
[2018-06-22] MEDS: PROMETHAZINE 25 MG/ML, 1ML IM PRN ×3 (00:27→09:20)
[2018-06-22 02:00] VITALS: BP 155/85
[2018-06-22] MEDS: ONDANSETRON 2MG/ML, 2ML IVPush PRN (04:19)
[2018-06-22] MEDS: KETOROLAC 30 MG/1 ML IVPush PRN (04:19)
[2018-06-22 05:00] LABS: MEAN CORPUSCULAR HEMOGLOBIN 29.9 pg (27.0-34.8); MEAN CORPUSCULAR HGB CONC 33.4 g/dL (32.4-35.8); MEAN CORPUSCULAR VOLUME 89.5 fL (80-100); MEAN PLATELET VOLUME 9.4 fL (7.4-10.4); PLATELET COUNT 320 x10^3/uL (130-400); RED BLOOD COUNT 3.97 x10^6/uL (3.82-5.3); RED CELL DISTRIBUTION WIDTH 14.6 % (9.6-15.2)
[2018-06-22 05:09] LABS: CHLORIDE 105 mmol/L (98-107)
[2018-06-22 05:16] LABS: ALANINE AMINOTRANSFERASE 27 U/L (12-78); ALBUMIN 3.6 g/dL (3.4-5.0); ALKALINE PHOSPHATASE 65 U/L (45-117); ANION GAP 11 mmol/L (5-15); BILIRUBIN,TOTAL 0.4 mg/dL (0.2-1.0); CALCIUM 8.2 mg/dL (8.5-10.1); CREATININE 1.01 mg/dL (0.55-1.02); TOTAL PROTEIN 7.8 g/dL (6.4-8.2)
[2018-06-22 06:13] LABS: BASOPHILS # (AUTO) 0.08 x10^3/uL (0-0.1); BASOPHILS % (AUTO) 1 % (0-1); EOSINOPHILS % (AUTO) 0 % (1-7); LYMPHOCYTES % (AUTO) 9 % (22-44); MD SCAN; MONOCYTES # (AUTO) 0.78 x10^3/uL (0.2-0.8); MONOCYTES % (AUTO) 4 % (2-9); NEUTROPHILS % (AUTO) 86 % (42-75)
[2018-06-22 06:50] VITALS: BP 118/73
[2018-06-22] MEDS ORDERED: NS + 20MEQ KCL 1,000 ML IV SCH (08:30)
[2018-06-22] MEDS: FAMOTIDINE 20 MG/2 ML IVPush SCH (09:19)
== END 2018-06-22 10:40 | disposition left against medical advice (07) | DRG 683 ==
LOC: ED 13:32 → EDIP 16:54 → 4NOR 17:30
PROVIDERS: ADMIT Hospitalist; ATTEND Hospitalist
DX: N17.9 Acute kidney failure, unspecified (principal); E87.2 Acidosis; Z68.41 Body mass index [BMI] 40.0-44.9, adult; D72.829 Elevated white blood cell count, unspecified; R11.2 Nausea with vomiting, unspecified; E86.0 Dehydration; F12.90 Cannabis use, unspecified, uncomplicated; F17.210 Nicotine dependence, cigarettes, uncomplicated; K31.84 Gastroparesis; Z96.652 Presence of left artificial knee joint; F41.9 Anxiety disorder, unspecified; E66.01 Morbid (severe) obesity due to excess calories
CPT/HCPCS: 36415; S0028; 80053; 83690; 83735; 84100; 84703; 85025; 96372; 99285; G0378; J1885; J2405; J2550; J3480; J3486; J2765; J7030

== ENCOUNTER 2018-09-23 20:25 | Emergency (ER) | payer SELFPAY ==
[~2018-09-23] VITALS: Ht 170.2 cm; Wt 130.0 kg
[2018-09-23] MEDS ORDERED: PROMETHAZINE 25 MG/ML, 1ML ONE (20:53)
[2018-09-23 21:00] LABS: MEAN CORPUSCULAR HEMOGLOBIN 30.1 pg (27.0-34.8); MEAN CORPUSCULAR VOLUME 88.6 fL (80-100); PLATELET COUNT 361 x10^3/uL (130-400); RED BLOOD COUNT 4.61 x10^6/uL (3.82-5.3); RED CELL DISTRIBUTION WIDTH 14.3 % (9.6-15.2)
[2018-09-23] MEDS ORDERED: SODIUM CHLORIDE FLUSH 10ML SYR IVF ONE (21:00)
[2018-09-23] MEDS ORDERED: SODIUM CHLORIDE 0.9% 1,000ML IVBOLUS ONE (21:00)
[2018-09-23] MEDS ORDERED: PROMETHAZINE 25 MG/ML, 1ML IM ONE (21:00)
[2018-09-23 21:13] LABS: ALANINE AMINOTRANSFERASE 24 U/L (12-78); ANION GAP 11 mmol/L (5-15); CALCIUM 9.1 mg/dL (8.5-10.1); CHLORIDE 104 mmol/L (98-107); CREATININE 1.11 mg/dL (0.55-1.02)
[2018-09-23] MEDS ORDERED: ZIPRASIDONE 20 MG INJ IM ONE ×2 (21:14→22:00)
[2018-09-23 21:17] LABS: ALKALINE PHOSPHATASE 69 U/L (45-117); BILIRUBIN,TOTAL 0.4 mg/dL (0.2-1.0); TOTAL PROTEIN 8.5 g/dL (6.4-8.2)
[2018-09-23 21:28] LABS: BASOPHILS # (AUTO) 0.04 x10^3/uL (0-0.1); BASOPHILS % (AUTO) 0 % (0-1); EOSINOPHILS % (AUTO) 0 % (1-7); LYMPHOCYTES # (AUTO) 0.88 x10^3/uL (1-3.4); LYMPHOCYTES % (AUTO) 4 % (22-44); MD SCAN; MONOCYTES # (AUTO) 0.36 x10^3/uL (0.2-0.8); MONOCYTES % (AUTO) 2 % (2-9); NEUTROPHILS % (AUTO) 94 % (42-75)
--- NOTE | 2018-09-23 21:48 | NUR ---
VOMITING SINCE 11 AM, HAS HX OF CYCLIC VOMITING CONTINUES [facility] USE
--- NOTE | 2018-09-23 21:48 | NUR ---
medicated per md order pt resting at this time
[2018-09-23 22:35] VITALS: BP 124/55
--- NOTE | 2018-09-23 22:36 | NUR ---
Patient/Caregiver given discharge instructions and they have confirmed that they understand the instructions. Patient ambulatory with steady gait.
== END 2018-09-23 22:39 | disposition home or self-care (01) ==
LOC: ED 21:35
DX: G43.A1 Cyclical vomiting, in migraine, intractable (principal); R11.0 Nausea
CPT/HCPCS: 36415; 74021; 80053; 83690; 84703; 85025; 96372; 99284; J2550; J3486; J7030

== ENCOUNTER 2018-10-16 10:22 | Emergency (ER) | payer SELFPAY ==
[~2018-10-16] VITALS: Ht 170.2 cm; Wt 122.0 kg
[2018-10-16] MEDS ORDERED: MAALOX/HYOSCYAMINE/LIDOCAINE 45 ML BTL PO ONE (10:30)
[2018-10-16] MEDS ORDERED: ZIPRASIDONE 20 MG INJ IM ONE ×2 (10:30→11:12)
[2018-10-16] MEDS ORDERED: MAALOX/HYOSCYAMINE/LIDOCAINE 45 ML BTL ONE (11:12)
--- NOTE | 2018-10-16 11:22 | NUR ---
PT IN BED, NAD, REFUSING GI COCKTAIL STATING "IT DOESN'T HELP", LAB INITIALLY UNABLE TO GET BLOODOWORK, AWAITING PHLEMBOTOMIST RE-TRY FOR BLOOD. WCTM
--- NOTE | 2018-10-16 11:45 | NUR ---
BLOOD WORK IN LAB, PT TO BE PO CHALLENGED, WCTM
[2018-10-16 11:47] LABS: MEAN CORPUSCULAR HEMOGLOBIN 29.6 pg (27.0-34.8); MEAN CORPUSCULAR HGB CONC 33.1 g/dL (32.4-35.8); MEAN CORPUSCULAR VOLUME 89.2 fL (80-100); MEAN PLATELET VOLUME 9.3 fL (7.4-10.4); PLATELET COUNT 363 x10^3/uL (130-400); RED BLOOD COUNT 4.75 x10^6/uL (3.82-5.3); RED CELL DISTRIBUTION WIDTH 14.8 % (9.6-15.2)
[2018-10-16 12:00] LABS: ALANINE AMINOTRANSFERASE 22 U/L (12-78); ALBUMIN 3.9 g/dL (3.4-5.0); ANION GAP 13 mmol/L (5-15); CALCIUM 9.4 mg/dL (8.5-10.1); CHLORIDE 102 mmol/L (98-107); CREATININE 1.26 mg/dL (0.55-1.02)
[2018-10-16 12:05] LABS: ALKALINE PHOSPHATASE 77 U/L (45-117); BILIRUBIN,TOTAL 0.3 mg/dL (0.2-1.0); TOTAL PROTEIN 8.5 g/dL (6.4-8.2)
--- NOTE | 2018-10-16 12:12 | NUR ---
PT GIVEN SIP OF WATER FOR PO CHALLENGE AT THIS TIME
[2018-10-16 12:18] LABS: BASOPHILS # (AUTO) 0.01 x10^3/uL (0-0.1); BASOPHILS % (AUTO) 0 % (0-1); EOSINOPHILS % (AUTO) 0 % (1-7); LYMPHOCYTES % (AUTO) 4 % (22-44); MD SCAN; MONOCYTES % (AUTO) 2 % (2-9); NEUTROPHILS % (AUTO) 93 % (42-75)
[2018-10-16 13:16] VITALS: BP 150/88
== END 2018-10-16 13:18 | disposition home or self-care (01) ==
LOC: ED 11:57
DX: G89.29 Other chronic pain (principal); R10.13 Epigastric pain; G43.A0 Cyclical vomiting, in migraine, not intractable; R63.0 Anorexia; Z72.9 Problem related to lifestyle, unspecified; Z87.19 Personal history of other diseases of the digestive system
CPT/HCPCS: 36415; 80053; 83690; 84703; 85025; 96372; 99283; J3486

== ENCOUNTER 2018-11-18 13:29 | Emergency (ER) | payer SELFPAY ==
[~2018-11-18] VITALS: Ht 170.2 cm; Wt 122.0 kg
[2018-11-18] MEDS ORDERED: DIPHENHYDRAMINE 50 MG/ML, 1ML ONE (13:47)
[2018-11-18] MEDS ORDERED: MORPHINE SULFATE 4 MG/ML, 1ML ONE (13:48)
[2018-11-18] MEDS ORDERED: METOCLOPRAMIDE 5 MG/ML, 2ML ONE (13:48)
[2018-11-18 13:49] LABS: BASOPHILS # (AUTO) 0.01 x10^3/uL (0-0.1); BASOPHILS % (AUTO) 0 % (0-1); EOSINOPHILS % (AUTO) 0 % (1-7); LYMPHOCYTES # (AUTO) 1.19 x10^3/uL (1-3.4); LYMPHOCYTES % (AUTO) 9 % (22-44); MD NO; MEAN CORPUSCULAR HEMOGLOBIN 30.3 pg (27.0-34.8); MEAN CORPUSCULAR VOLUME 88.9 fL (80-100); MONOCYTES # (AUTO) 0.57 x10^3/uL (0.2-0.8); MONOCYTES % (AUTO) 4 % (2-9); NEUTROPHILS # (AUTO) 12.23 x10^3/uL (1.8-6.8); NEUTROPHILS % (AUTO) 87 % (42-75); PLATELET COUNT 400 x10^3/uL (130-400); RED BLOOD COUNT 4.43 x10^6/uL (3.82-5.3); RED CELL DISTRIBUTION WIDTH 14.7 % (9.6-15.2)
[2018-11-18 13:59] LABS: ALANINE AMINOTRANSFERASE 22 U/L (12-78); ALBUMIN 3.9 g/dL (3.4-5.0); ANION GAP 9 mmol/L (5-15); CALCIUM 9.3 mg/dL (8.5-10.1); CHLORIDE 103 mmol/L (98-107); CREATININE 1.01 mg/dL (0.55-1.02)
[2018-11-18] MEDS ORDERED: SODIUM CHLORIDE FLUSH 10ML SYR IVF ONE (14:00)
[2018-11-18] MEDS ORDERED: METOCLOPRAMIDE 5 MG/ML, 2ML IVPush ONE (14:00)
[2018-11-18] MEDS ORDERED: MORPHINE SULFATE 4 MG/ML, 1ML IVPush PRN (14:00)
[2018-11-18] MEDS ORDERED: PLEASE ENTER HEIGHT AND WEIGHT MC SCH (14:00)
[2018-11-18] MEDS ORDERED: DIPHENHYDRAMINE 50 MG/ML, 1ML IVPush ONE (14:00)
[2018-11-18 14:04] LABS: ALKALINE PHOSPHATASE 67 U/L (45-117); BILIRUBIN,TOTAL 0.5 mg/dL (0.2-1.0)
[2018-11-18] MEDS ORDERED: PROMETHAZINE 25 MG/ML, 1ML IM ONE (15:00)
[2018-11-18] MEDS ORDERED: PROMETHAZINE 25 MG/ML, 1ML ONE (15:24)
[2018-11-18 15:37] VITALS: BP 149/87
== END 2018-11-18 15:39 | disposition home or self-care (01) ==
LOC: ED 15:33
DX: R10.84 Generalized abdominal pain (principal); R11.2 Nausea with vomiting, unspecified; Z72.9 Problem related to lifestyle, unspecified; Z87.19 Personal history of other diseases of the digestive system
CPT/HCPCS: 36415; 80053; 83690; 84703; 85025; 93005; 96372; 96374; 96375; 99284; J1200; J2550; J2765

== ENCOUNTER 2019-04-21 12:38 | Emergency (ER) | payer MEDICAID ==
[~2019-04-21] VITALS: Ht 170.2 cm; Wt 120.5 kg
[2019-04-21 15:17] VITALS: BP 103/63
== END 2019-04-21 16:35 | disposition home or self-care (01) ==
LOC: ED 16:09
DX: E86.0 Dehydration (principal); R11.2 Nausea with vomiting, unspecified; Z72.9 Problem related to lifestyle, unspecified
CPT/HCPCS: 36415; 80053; 83690; 85025; 96361; 96372; 96374; 96375; 96376; 99283; J0500; J1200; J1630; J1885; J7030

== ENCOUNTER 2019-04-22 06:14 | Emergency (ER) | payer MEDICAID ==
[~2019-04-22] VITALS: Ht 170.2 cm; Wt 120.0 kg
[2019-04-22 09:17] VITALS: BP 119/68
== END 2019-04-22 10:50 ==
LOC: ED 06:49
DX: R11.2 Nausea with vomiting, unspecified (principal); E66.9 Obesity, unspecified
CPT/HCPCS: 36415; 80053; 81001; 83690; 84703; 85025; 87086; 93005; 96360; 96372; 99284; J2550; J2765; J3486; J7030

== ENCOUNTER 2019-07-24 15:20 | Emergency (ER) | payer MEDICAID ==
[~2019-07-24] VITALS: Ht 170.2 cm; Wt 114.0 kg
[~2019-07-24 15:20] MED LIST changes: +ACET500T64 PO; +AMOX1TAB64 PO; +CHLO473M MM
--- NOTE | 2019-07-24 15:25 | NUR ---
29 Y/O FEMALE BIB AMBULANCE WITH C/O ABDOMINAL/MENSTRUAL PAIN. PER REPORT PT STATED AT 0700 SHE HAD ALL OVER ABDOMINAL PAIN AND THE PAIN COMES WHEN HER MENSTRUAL CYCLE COMES ON. 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 4MG ZOFRAN AND 200 mcg FENTANYL ADMINISTERED CLIENT STRATEGIST. PER PT "I'VE BEEN ON MY PERIOD FOR FOUR DAYS. THE PAIN WASN'T THIS BAD THE WHOLE TIME. IT WAS OFF AND ON. TODAY IT GOT BAD." PT CHANGED INTO GOWN. PT PLACED ON CONT PULSE OX,NIBP. NO C/O D, TRAUMA, SYNCOPE, CP, SOB.
--- NOTE | 2019-07-24 15:27 | NUR ---
PT ALSO STATES "THIS HAPPENS EVERY MONTH."
[2019-07-24] MEDS ORDERED: HALOPERIDOL 5 MG/ML ONE (15:30)
[2019-07-24] MEDS ORDERED: DIPHENHYDRAMINE 50 MG/ML, 1ML ONE (15:30)
--- NOTE | 2019-07-24 15:41 | NUR ---
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 MEDICATIONS ADMINISTERED PER ORDER.
[2019-07-24 15:48] LABS: BASOPHILS # (AUTO) 0.05 x10^3/uL (0-0.1); BASOPHILS % (AUTO) 0 % (0-1); EOSINOPHILS # (AUTO) 0.02 x10^3/uL (0-0.4); EOSINOPHILS % (AUTO) 0 % (1-7); LYMPHOCYTES # (AUTO) 2.59 x10^3/uL (1-3.4); LYMPHOCYTES % (AUTO) 22 % (22-44); MD NO; MEAN CORPUSCULAR HEMOGLOBIN 30.5 pg (27.0-34.8); MEAN CORPUSCULAR HGB CONC 32.5 g/dL (32.4-35.8); MEAN CORPUSCULAR VOLUME 93.7 fL (80-100); MEAN PLATELET VOLUME 9.1 fL (7.4-10.4); MONOCYTES # (AUTO) 0.46 x10^3/uL (0.2-0.8); MONOCYTES % (AUTO) 4 % (2-9); NEUTROPHILS # (AUTO) 8.67 x10^3/uL (1.8-6.8); NEUTROPHILS % (AUTO) 74 % (42-75); PLATELET COUNT 407 x10^3/uL (130-400); RED BLOOD COUNT 4.17 x10^6/uL (3.82-5.3); RED CELL DISTRIBUTION WIDTH 14.9 % (9.6-15.2)
[2019-07-24 15:56] LABS: ALANINE AMINOTRANSFERASE 20 U/L (12-78); ALBUMIN 3.7 g/dL (3.4-5.0); ANION GAP 10 mmol/L (5-15); CALCIUM 9.2 mg/dL (8.5-10.1); CHLORIDE 109 mmol/L (98-107); CREATININE 0.87 mg/dL (0.55-1.02)
[2019-07-24 15:58] LABS: ALKALINE PHOSPHATASE 69 U/L (45-117); BILIRUBIN,TOTAL 0.5 mg/dL (0.2-1.0); TOTAL PROTEIN 7.9 g/dL (6.4-8.2)
[2019-07-24] MEDS ORDERED: DIPHENHYDRAMINE 50 MG/ML, 1ML IVPush ONE (16:00)
[2019-07-24] MEDS ORDERED: HALOPERIDOL 5 MG/ML IV ONE (16:00)
[2019-07-24] MEDS ORDERED: POTASSIUM CHLORIDE 20 MEQ TAB.ER.PRT ONE (16:30)
[2019-07-24] MEDS ORDERED: POTASSIUM CHLORIDE 20 MEQ TAB.ER.PRT PO ONE (16:30)
[2019-07-24] MEDS ORDERED: SODIUM CHLORIDE FLUSH 10ML SYR IVF ONE (16:30)
--- NOTE | 2019-07-24 16:32 | NUR ---
PT RESTING ON [facility].PT STATES "THE MEDICATIONS HELPED." PT HAS NOT HAD ANY EPISODES OF EMESIS. MEDICATION ADMINISTERED PER ORDER. NO NEEDS REQUESTED AT THIS TIME.
[2019-07-24 17:35] VITALS: BP 107/46
--- NOTE | 2019-07-24 17:35 | NUR ---
Patient/Caregiver given discharge instructions and they have confirmed that they understand the instructions. Patient ambulatory with steady gait. PT LEFT WITH ALL PERSONAL BELONGINGS.
== END 2019-07-24 17:39 | disposition home or self-care (01) ==
LOC: ED 15:47
DX: R11.2 Nausea with vomiting, unspecified (principal); E86.0 Dehydration; E87.5 Hyperkalemia; R10.84 Generalized abdominal pain
CPT/HCPCS: 36415; 80053; 83690; 85025; 96374; 96375; 99283; J1200; J1630

== ENCOUNTER 2019-07-26 12:29 | Emergency (ER) | payer MEDICAID ==
[~2019-07-26] VITALS: Ht 170.2 cm; Wt 113.6 kg
[2019-07-26] MEDS ORDERED: HALOPERIDOL 5 MG/ML ONE (12:53)
[2019-07-26] MEDS ORDERED: METOCLOPRAMIDE 5 MG/ML, 2ML ONE (12:53)
[2019-07-26] MEDS ORDERED: FAMOTIDINE 20 MG/2 ML ONE (12:53)
[2019-07-26] MEDS ORDERED: FAMOTIDINE 20 MG/2 ML IV ONE (13:00)
[2019-07-26] MEDS ORDERED: HALOPERIDOL 5 MG/ML IV ONE (13:00)
[2019-07-26] MEDS ORDERED: SODIUM CHLORIDE FLUSH 10ML SYR IVF ONE (13:00)
[2019-07-26] MEDS ORDERED: DIPHENHYDRAMINE 50 MG/ML, 1ML IVPush ONE (13:00)
[2019-07-26] MEDS ORDERED: METOCLOPRAMIDE 5 MG/ML, 2ML IVPush ONE (13:00)
[2019-07-26] MEDS ORDERED: SODIUM CHLORIDE 0.9% 1,000ML IVBOLUS ONE (13:00)
[2019-07-26] MEDS ORDERED: DIPHENHYDRAMINE 50 MG/ML, 1ML ONE (13:31)
[2019-07-26] MEDS ORDERED: phenergan RC (13:41)
--- NOTE | 2019-07-26 13:41 | NUR ---
PIV estabilshed, labs drawn, PIV fluids infusing and medications provided per EMAR. Pt resting on gurney connected to NIBP cuff, continous pulse ox monitor, and laboratory monitor. Bedrails up x 2 and call light within reach. Pt aware of NPO status. Pt aware of need of urine sample. NADN. No other needs expressed at this time.
[2019-07-26 13:44] LABS: ALANINE AMINOTRANSFERASE 19 U/L (12-78); ALBUMIN 3.8 g/dL (3.4-5.0); ANION GAP 8 mmol/L (5-15); CHLORIDE 105 mmol/L (98-107); CREATININE 0.78 mg/dL (0.55-1.02)
[2019-07-26 13:49] LABS: ALKALINE PHOSPHATASE 63 U/L (45-117); BILIRUBIN,TOTAL 0.5 mg/dL (0.2-1.0); TOTAL PROTEIN 8.1 g/dL (6.4-8.2)
[2019-07-26 14:12] LABS: MD YES; MEAN CORPUSCULAR HEMOGLOBIN 30.5 pg (27.0-34.8); MEAN CORPUSCULAR HGB CONC 32.8 g/dL (32.4-35.8); MEAN PLATELET VOLUME 9.7 fL (7.4-10.4); PLATELET COUNT 382 x10^3/uL (130-400); RED BLOOD COUNT 4.18 x10^6/uL (3.82-5.3); RED CELL DISTRIBUTION WIDTH 14.8 % (9.6-15.2)
--- NOTE | 2019-07-26 14:14 | NUR ---
Pt ambulates with steady gait and balance from ED room to restroom. NADN. No other needs expressed. UA cup provided.
[2019-07-26 14:15] LABS: BANDS%(MANUAL) 3 % (0-7); LYMPHS% (MANUAL) 11 % (22-44); MONOS% (MANUAL) 6 % (2-9); REACTIVE LYMPHS % (MANUAL) 1 % (0-0); SEGS% (MANUAL) 79 % (42-75)
[2019-07-26 14:17] LABS: <PLATELET ESTIMATE> ADEQUATE; <PLT MORPHOLOGY> NORMAL PLT MORPH; <RBC MORPHOLOGY> NORMAL; GIANT PLATELETS 1+
--- NOTE | 2019-07-26 14:28 | NUR ---
Pt back to [facility] resting with eyes closed. Urine sent to lab. Pt reconnected to NIBP cuff, continous pulse ox monitor, and diagnostic cardiac sonographer. NADN. Call light within reach. No needs expressed.
[2019-07-26 14:35] LABS: BAND#(MANUAL) 0.25 x10^3/uL
[2019-07-26 14:36] LABS: MONOS#(MANUAL) 0.49 x10^3/uL (0.3-2.7); REACTIVE LYMPHS # (MANUAL) 0.08 x10^3/uL (0-0); SEG#(MANUAL) 6.48 x10^3/uL (1.8-6.8)
[2019-07-26 14:50] LABS: CULTURE INDICATED? YES; MICROSCOPIC INDICATED
--- NOTE | 2019-07-26 15:47 | NUR ---
Pt provided water for PO challenge and passed PO challenge without n/v.
--- NOTE | 2019-07-26 15:51 | NUR ---
Pt states, "I am having pain again, like a 7 here (points to abdomen) and I am feeling nauseated again." EDMD notified.
[2019-07-26] MEDS ORDERED: ONDANSETRON 2MG/ML, 2ML ONE (15:58)
[2019-07-26] MEDS ORDERED: ONDANSETRON 2MG/ML, 2ML IVPush ONE (16:00)
[2019-07-26 16:02] VITALS: BP 123/75
--- NOTE | 2019-07-26 16:03 | NUR ---
Provided medicaiton per EMAR. Pt apprecative.
--- NOTE | 2019-07-26 16:09 | NUR ---
Pt denies n/v at this time. Patient given discharge instructions and they have confirmed that they understand the instructions. Patient ambulatory with steady gait. Pt left with Rx, d/c paperwork, and all personal belongings. NADN. No needs expressed.
== END 2019-07-26 16:12 | disposition home or self-care (01) ==
LOC: ED 12:38
DX: K59.00 Constipation, unspecified (principal); F12.988 Cannabis use, unspecified with other cannabis-induced disorder; R11.2 Nausea with vomiting, unspecified; Z98.890 Other specified postprocedural states
CPT/HCPCS: 36415; 74021; 80053; 81001; 83690; 84703; 85025; 87086; 96361; 96374; 96375; 99284; J1200; J1630; J2405; J2765; J3490; J7030

== ENCOUNTER 2019-09-18 23:32 | Emergency (ER) | payer MEDICAID ==
[~2019-09-18] VITALS: Ht 170.2 cm; Wt 109.0 kg
[~2019-09-18 23:32] MED LIST changes: +phenergan RC
[2019-09-18 23:55] LABS: BASOPHILS # (AUTO) 0.01 x10^3/uL (0-0.1); BASOPHILS % (AUTO) 0 % (0-1); EOSINOPHILS % (AUTO) 0 % (1-7); LYMPHOCYTES # (AUTO) 1.04 x10^3/uL (1-3.4); LYMPHOCYTES % (AUTO) 8 % (22-44); MD NO; MEAN CORPUSCULAR HEMOGLOBIN 29.9 pg (27.0-34.8); MEAN CORPUSCULAR HGB CONC 33.2 g/dL (32.4-35.8); MEAN PLATELET VOLUME 8.8 fL (7.4-10.4); MONOCYTES # (AUTO) 0.39 x10^3/uL (0.2-0.8); MONOCYTES % (AUTO) 3 % (2-9); NEUTROPHILS # (AUTO) 12.01 x10^3/uL (1.8-6.8); NEUTROPHILS % (AUTO) 89 % (42-75); PLATELET COUNT 295 x10^3/uL (130-400); RED BLOOD COUNT 4.02 x10^6/uL (3.82-5.3); RED CELL DISTRIBUTION WIDTH 15.4 % (9.6-15.2)
[2019-09-19] MEDS ORDERED: HALOPERIDOL 5 MG/ML IV ONE
[2019-09-19] MEDS ORDERED: SODIUM CHLORIDE FLUSH 10ML SYR IVF ONE
[2019-09-19] MEDS ORDERED: DIPHENHYDRAMINE 50 MG/ML, 1ML IVPush ONE
[2019-09-19 00:08] LABS: ALBUMIN 3.6 g/dL (3.4-5.0); ANION GAP 8 mmol/L (5-15); CALCIUM 8.7 mg/dL (8.5-10.1); CHLORIDE 103 mmol/L (98-107); CREATININE 0.77 mg/dL (0.55-1.02)
[2019-09-19] MEDS ORDERED: POTASSIUM CHLORIDE 20 MEQ TAB.ER.PRT ONE (00:38)
[2019-09-19] MEDS ORDERED: ONDANSETRON 2MG/ML, 2ML ONE (00:38)
[2019-09-19] MEDS ORDERED: METOCLOPRAMIDE 5 MG/ML, 2ML ONE (00:44)
[2019-09-19] MEDS ORDERED: POTASSIUM CHLORIDE 20 MEQ TAB.ER.PRT PO ONE (01:00)
[2019-09-19] MEDS ORDERED: SODIUM CHLORIDE 0.9% 1,000ML IVBOLUS ONE ×2 (01:00)
[2019-09-19] MEDS ORDERED: METOCLOPRAMIDE 5 MG/ML, 2ML IVPush ONE (01:00)
[2019-09-19] MEDS ORDERED: ONDANSETRON 2MG/ML, 2ML IVPush ONE (01:00)
--- NOTE | 2019-09-19 01:10 | NUR ---
WARM BLANKETS PROVIDED. NO OTHER NEEDS AT THIS TIME.
--- NOTE | 2019-09-19 01:30 | NUR ---
PT RESTING WITH EYES CLOSED. MONITOR IN PLACE.
--- NOTE | 2019-09-19 02:13 | NUR ---
PT RESTING COMFORTABLY. ABLE TO TOLERATE FLUIDS. NO OTHER NEEDS AT THIS TIME.
[2019-09-19 02:31] VITALS: BP 114/88
== END 2019-09-19 02:36 | disposition home or self-care (01) ==
LOC: ED 23:45
DX: Z32.01 Encounter for pregnancy test, result positive (principal); O21.0 Mild hyperemesis gravidarum; O02.9 Abnormal product of conception, unspecified; E87.6 Hypokalemia; Z3A.01 Less than 8 weeks gestation of pregnancy
CPT/HCPCS: 36415; 80048; 82040; 84702; 85025; 96361; 96374; 99283; J2765; J7030; 84703

== ENCOUNTER 2019-10-28 16:51 | Emergency (ER) | payer MEDICAID ==
[~2019-10-28] VITALS: Ht 170.2 cm; Wt 109.0 kg
--- NOTE | 2019-10-28 17:00 | NUR ---
PT TO ROOM 4 PER CART VIA EMS. PT STANDS AND TRANSFERS FROM HALLWAY TO BED, WHILE HOLDING A BAG OF EMESIS CLEAR REDDISH PINK. EMS INFORMS RN THAT PATIENT WAS DRINKING RED GATORADE. PRECEPTING RN IN ROOM TO HOOK PATIENT TO MONITORS, WHILE THIS RN GETS REPORT FROM EMS IN HALLWAY. PT IS APPROXIMATELY 10 WEEKS GESTATION, AND SUFFERS FROM CYCLIC EMESIS. PT WAS SEEN IN THE [facility] ED LAST NIGHT. PT WAS GIVEN IV MEDICATIONS AND TAKEN TO US. AFTER US PATIENT REMAINED NAUSEATED, BUT SHE WAS DISCHARGED WITH ODT ZOFRAN. PT WAS VERY UPSET THAT SHE WAS DISCHARGED, BUT WAS TOLD THAT THE US WAS NORMAL. PT STATES "I JUST CAN'T STOP VOMITING, AND THE PAIN IS UNBEARABLE. PER EMS, PT WAS REQUESTING HALDOL AND FENTANYL BY NAME ON THE ROUTE HERE, BUT WAS DENIED BY ED DOCTOR. 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 VITALS ARE WNL, PT CRYING AND WANTING TO KNOW WHEN THE DOCTOR WILL BE OVER TO GIVE HER PAIN MEDICATIONS. ASSESSMENT PERFORMED, ALL WNL EXCEPT ABDOMEN WHICH WAS TENDER TO PALPATION. NO VOMITING SINCE ARRIVAL.
[2019-10-28] MEDS ORDERED: DIPHENHYDRAMINE 50 MG/ML, 1ML IVPush ONE (18:00)
[2019-10-28] MEDS ORDERED: FAMOTIDINE 20 MG/2 ML IV ONE (18:00)
[2019-10-28] MEDS ORDERED: SODIUM CHLORIDE 0.9% 1,000ML IVBOLUS ONE (18:00)
--- NOTE | 2019-10-28 18:07 | NUR ---
PT WANTS PAIN MED BEFORE THE US EXAM - US DELAY
[2019-10-28 18:12] LABS: MEAN CORPUSCULAR HEMOGLOBIN 30.2 pg (27.0-34.8); MEAN CORPUSCULAR HGB CONC 33.2 g/dL (32.4-35.8); MEAN CORPUSCULAR VOLUME 90.8 fL (80-100); PLATELET COUNT 301 x10^3/uL (130-400); RED BLOOD COUNT 4.11 x10^6/uL (3.82-5.3); RED CELL DISTRIBUTION WIDTH 15.9 % (9.6-15.2)
[2019-10-28] MEDS ORDERED: DIPHENHYDRAMINE 50 MG/ML, 1ML ONE (18:19)
[2019-10-28] MEDS ORDERED: FAMOTIDINE 20 MG/2 ML ONE (18:20)
[2019-10-28 18:22] LABS: ALANINE AMINOTRANSFERASE 20 U/L (12-78); ALBUMIN 3.6 g/dL (3.4-5.0); ANION GAP 10 mmol/L (5-15); CALCIUM 9.2 mg/dL (8.5-10.1); CHLORIDE 103 mmol/L (98-107); CREATININE 0.75 mg/dL (0.55-1.02)
[2019-10-28 18:24] LABS: ALKALINE PHOSPHATASE 56 U/L (45-117); BILIRUBIN,TOTAL 0.5 mg/dL (0.2-1.0); TOTAL PROTEIN 7.6 g/dL (6.4-8.2)
[2019-10-28] MEDS ORDERED: SODIUM CHLORIDE FLUSH 10ML SYR IVF ONE (18:30)
[2019-10-28 18:40] LABS: MICROSCOPIC INDICATED
[2019-10-28 18:56] LABS: BASOPHILS # (AUTO) 0.01 x10^3/uL (0-0.1); BASOPHILS % (AUTO) 0 % (0-1); EOSINOPHILS % (AUTO) 0 % (1-7); LYMPHOCYTES # (AUTO) 0.89 x10^3/uL (1-3.4); LYMPHOCYTES % (AUTO) 5 % (22-44); MD SCAN; MONOCYTES # (AUTO) 0.92 x10^3/uL (0.2-0.8); MONOCYTES % (AUTO) 5 % (2-9); NEUTROPHILS # (AUTO) 17.86 x10^3/uL (1.8-6.8); NEUTROPHILS % (AUTO) 91 % (42-75)
[2019-10-28 18:57] LABS: CULTURE INDICATED? YES
--- NOTE | 2019-10-28 19:07 | NUR ---
PT TO US VIA CART. FHT 158 PER DOPPLER.
[2019-10-28] MEDS ORDERED: CAPSAICIN CRM 0.075%, 60GM TP PRN (19:30)
--- NOTE | 2019-10-28 20:00 | NUR ---
PT RESTING IN ROOM.
[2019-10-28 21:49] VITALS: BP 98/57
== END 2019-10-28 21:52 | disposition home or self-care (01) ==
LOC: ED 21:45
DX: O21.8 Other vomiting complicating pregnancy (principal); R10.84 Generalized abdominal pain; Z3A.10 10 weeks gestation of pregnancy
CPT/HCPCS: 36415; 76801; 80053; 81001; 83690; 85025; 86901; 87086; 96361; 96374; 96375; 99284; J1200; J3490; J7030

== ENCOUNTER 2019-11-20 04:09 | Emergency (ER) | payer MEDICAID ==
[~2019-11-20] VITALS: Ht 170.2 cm; Wt 114.9 kg
[2019-11-20] MEDS ORDERED: PROMETHAZINE 25 MG/ML, 1ML IM ONE (04:30)
[2019-11-20] MEDS ORDERED: CAPSAICIN CRM 0.075%, 60GM TP ONE (04:30)
[2019-11-20] MEDS ORDERED: DIPHENHYDRAMINE 25 MG CAPSULE PO ONE (04:30)
[2019-11-20] MEDS ORDERED: PROMETHAZINE 25 MG/ML, 1ML ONE (04:32)
[2019-11-20 04:48] LABS: MEAN CORPUSCULAR HEMOGLOBIN 30.6 pg (27.0-34.8); MEAN CORPUSCULAR HGB CONC 33.4 g/dL (32.4-35.8); MEAN CORPUSCULAR VOLUME 91.5 fL (80-100); MEAN PLATELET VOLUME 8.9 fL (7.4-10.4); PLATELET COUNT 312 x10^3/uL (130-400); RED BLOOD COUNT 4.39 x10^6/uL (3.82-5.3); RED CELL DISTRIBUTION WIDTH 15.6 % (9.6-15.2)
[2019-11-20] MEDS ORDERED: DIPHENHYDRAMINE 50 MG/ML, 1ML ONE ×2 (04:51→06:01)
[2019-11-20 05:00] LABS: ALBUMIN 3.6 g/dL (3.4-5.0); ANION GAP 11 mmol/L (5-15); CALCIUM 8.7 mg/dL (8.5-10.1); CHLORIDE 105 mmol/L (98-107)
[2019-11-20] MEDS ORDERED: DIPHENHYDRAMINE 50 MG/ML, 1ML IVPush ONE ×2 (05:00→06:00)
[2019-11-20 05:19] LABS: ALANINE AMINOTRANSFERASE 26 U/L (12-78); ALKALINE PHOSPHATASE 65 U/L (45-117); BILIRUBIN,TOTAL 0.4 mg/dL (0.2-1.0); CREATININE 0.78 mg/dL (0.55-1.02); TOTAL PROTEIN 7.9 g/dL (6.4-8.2)
[2019-11-20 05:44] LABS: BASOPHILS # (AUTO) 0.03 x10^3/uL (0-0.1); BASOPHILS % (AUTO) 0 % (0-1); EOSINOPHILS % (AUTO) 0 % (1-7); LYMPHOCYTES # (AUTO) 1.17 x10^3/uL (1-3.4); LYMPHOCYTES % (AUTO) 6 % (22-44); MD SCAN; MONOCYTES # (AUTO) 0.37 x10^3/uL (0.2-0.8); MONOCYTES % (AUTO) 2 % (2-9); NEUTROPHILS # (AUTO) 19.65 x10^3/uL (1.8-6.8); NEUTROPHILS % (AUTO) 93 % (42-75)
--- NOTE | 2019-11-20 05:58 | NUR ---
TASK RN, IVF STARTED.
[2019-11-20] MEDS ORDERED: SODIUM CHLORIDE 0.9% 1,000ML IVBOLUS ONE (06:00)
[2019-11-20] MEDS ORDERED: FAMOTIDINE 20 MG/2 ML IVPush ONE (06:00)
[2019-11-20] MEDS ORDERED: FAMOTIDINE 20 MG/2 ML ONE (06:01)
--- NOTE | 2019-11-20 06:24 | NUR ---
Pt continues to ambulate in the room and does not stay in the bed long enough to be connected to IVf. Pt states "you aren't giving me anything for my pain". Pt informed of risks to her from pain medications as well as the risk of aspiration if she vomits while sleeping. Pt continues to request to "sign out".
[2019-11-20 06:33] VITALS: BP 146/94
== END 2019-11-20 06:41 | disposition home or self-care (01) ==
LOC: ED 06:10
DX: O21.9 Vomiting of pregnancy, unspecified (principal); R10.84 Generalized abdominal pain; E66.9 Obesity, unspecified; Z3A.14 14 weeks gestation of pregnancy; F12.10 Cannabis abuse, uncomplicated
CPT/HCPCS: 36415; 80053; 83690; 84702; 85025; 96372; 96374; 96375; 99284; J1200; J2550; J3490; J7030

== ENCOUNTER 2020-01-19 08:48 | Inpatient (IN) | payer MEDICAID ==
[~2020-01-19] VITALS: Ht 170.2 cm; Wt 115.1 kg
--- NOTE | 2020-01-19 09:12 | NUR ---
REPORT RECEIVED FROM [facility].
[2020-01-19] MEDS ORDERED: METOCLOPRAMIDE 5 MG/ML, 2ML ONE ×2 (09:14→12:08)
[2020-01-19 09:20] LABS: MEAN CORPUSCULAR HEMOGLOBIN 30.8 pg (27.0-34.8); MEAN CORPUSCULAR HGB CONC 33.6 g/dL (32.4-35.8); MEAN CORPUSCULAR VOLUME 91.6 fL (80-100); PLATELET COUNT 307 x10^3/uL (130-400); RED BLOOD COUNT 4.19 x10^6/uL (3.82-5.3); RED CELL DISTRIBUTION WIDTH 13.9 % (9.6-15.2)
--- NOTE | 2020-01-19 09:23 | NUR ---
pt medicated per emar. pt tolerated well.
--- NOTE | 2020-01-19 09:24 | NUR ---
pt amb to br with steady gait. urine cup given.
--- NOTE | 2020-01-19 09:35 | NUR ---
PT C/O SEVERE ABD PAIN. EDMD NOTIFIED.
[2020-01-19 09:37] LABS: ALANINE AMINOTRANSFERASE 17 U/L (12-78); ALBUMIN 3.1 g/dL (3.4-5.0); CALCIUM 8.7 mg/dL (8.5-10.1); CREATININE 0.82 mg/dL (0.55-1.02)
[2020-01-19] MEDS ORDERED: FENTANYL PF 100 MCG/2ML ONE (09:38)
[2020-01-19 09:39] LABS: ALKALINE PHOSPHATASE 74 U/L (45-117); BILIRUBIN,TOTAL 0.2 mg/dL (0.2-1.0); TOTAL PROTEIN 7.3 g/dL (6.4-8.2)
--- NOTE | 2020-01-19 09:43 | NUR ---
ob rn in room to check fhr.
--- NOTE | 2020-01-19 09:45 | NUR ---
pt medicated per emar. pt tolerated well. ns infusing at this time.
--- NOTE | 2020-01-19 09:45 | NUR ---
pt states"i can't pee.i'm in pain." urine cup in room.
[2020-01-19] MEDS ORDERED: SODIUM CHLORIDE FLUSH 10ML SYR IVF ONE (10:00)
[2020-01-19] MEDS ORDERED: METOCLOPRAMIDE 5 MG/ML, 2ML IVPush ONE ×2 (10:00→12:30)
[2020-01-19] MEDS ORDERED: SODIUM CHLORIDE 0.9% 1,000ML IVBOLUS ONE (10:00)
[2020-01-19] MEDS ORDERED: FENTANYL PF 100 MCG/2ML IV ONE ×2 (10:00→14:00)
[2020-01-19 10:26] LABS: ANION GAP 12 mmol/L (5-15); CHLORIDE 106 mmol/L (98-107)
--- NOTE | 2020-01-19 10:40 | NUR ---
pt sleeping in [facility]. resps even and unlabored. bp/spo2 monitors in place. call light within reach. rails up x 2.
[2020-01-19 10:54] LABS: BASOPHILS # (AUTO) 0.01 x10^3/uL (0-0.1); BASOPHILS % (AUTO) 0 % (0-1); EOSINOPHILS # (AUTO) 0.01 x10^3/uL (0-0.4); EOSINOPHILS % (AUTO) 0 % (1-7); LYMPHOCYTES # (AUTO) 1.79 x10^3/uL (1-3.4); LYMPHOCYTES % (AUTO) 8 % (22-44); MD SCAN; MONOCYTES # (AUTO) 0.34 x10^3/uL (0.2-0.8); MONOCYTES % (AUTO) 2 % (2-9); NEUTROPHILS # (AUTO) 20.15 x10^3/uL (1.8-6.8); NEUTROPHILS % (AUTO) 90 % (42-75)
--- NOTE | 2020-01-19 11:36 | NUR ---
pt sleeping in [facility]. resps even and unlabored. bp/spo2 monitors in place. call light within reach. rails up x 2.
--- NOTE | 2020-01-19 11:47 | NUR ---
PT AMB TO BR AND BACK TO ROOM WITH STEADY GAIT. URINE CUP GIVEN.
--- NOTE | 2020-01-19 12:00 | NUR ---
LUNCH RN: PT BACK FROM RESTROOM, C/O ABD PAIN. MD TO BE UPDATED.
[2020-01-19 12:26] LABS: MICROSCOPIC INDICATED
[2020-01-19 12:36] LABS: CULTURE INDICATED? NO
--- NOTE | 2020-01-19 12:50 | NUR ---
EDMD AT BEDSIDE TO RE-EVALUATE AT THIS TIME. PT STILL C/O ABD PAIN.
--- NOTE | 2020-01-19 12:55 | NUR ---
pt amb to br with steady gait. pt keep stating"i need to go. i feel like pooping my self" pt's aox4. resps even and unlabored.
--- NOTE | 2020-01-19 13:03 | NUR ---
PT MEDICATED PER EMAR FOR PAIN. PT TOLERATED WELL.
--- NOTE | 2020-01-19 14:17 | NUR ---
report given to timothy neely. all questions answered.
--- NOTE | 2020-01-19 14:38 | NUR ---
PT AMB TO BR WITH STEADY GAIT.
--- NOTE | 2020-01-19 14:54 | NUR ---
pt wandering in hallway and room. pt states "i can't wait. i wanna go to upstairs now." pt screaming and crying at this time. pt educated regarding poc. pt waiting for hospitalist at this time.
[2020-01-19] MEDS ORDERED: KETOROLAC 30 MG/1 ML IV PRN (15:30)
[2020-01-19] MEDS ORDERED: hydrALAzine 20 MG/ML, 1ML IVPush PRN (15:30)
[2020-01-19] MEDS ORDERED: ACETAMINOPHEN 325 MG TABLET PO PRN (15:30)
[2020-01-19] MEDS ORDERED: morphine SULFATE 10 MG/ML, 1ML IVPush PRN (15:30)
[2020-01-19] MEDS ORDERED: OXYcodone IR 5MG TABLET PO PRN (16:00)
[2020-01-19] MEDS ORDERED: PANTOPRAZOLE 40 MG IV IVPush SCH (16:00)
[2020-01-19] MEDS: SODIUM CHLORIDE 0.9% 1,000 ML IV SCH (16:06)
[2020-01-19] MEDS: ONDANSETRON 2MG/ML, 2ML IVPush PRN ×2 (16:08→23:23)
[2020-01-19] MEDS: METOCLOPRAMIDE 5 MG/ML, 2ML IVPush PRN (17:42)
[2020-01-19] MEDS: DIPHENHYDRAMINE 50 MG/ML, 1ML IVPush PRN (18:23)
[2020-01-19 18:48] VITALS: BP 108/69
[2020-01-20] MEDS: METOCLOPRAMIDE 5 MG/ML, 2ML IVPush PRN ×3 (01:37→17:42)
[2020-01-20 02:26] VITALS: BP 111/60
[2020-01-20 05:58] LABS: MEAN CORPUSCULAR HEMOGLOBIN 30.5 pg (27.0-34.8); MEAN CORPUSCULAR HGB CONC 32.9 g/dL (32.4-35.8); MEAN CORPUSCULAR VOLUME 92.7 fL (80-100); MEAN PLATELET VOLUME 9.8 fL (7.4-10.4); PLATELET COUNT 233 x10^3/uL (130-400); RED BLOOD COUNT 3.48 x10^6/uL (3.82-5.3); RED CELL DISTRIBUTION WIDTH 14.3 % (9.6-15.2)
[2020-01-20 06:02] LABS: ALANINE AMINOTRANSFERASE 14 U/L (12-78); ALBUMIN 2.7 g/dL (3.4-5.0); ANION GAP 9 mmol/L (5-15); CALCIUM 8.5 mg/dL (8.5-10.1); CHLORIDE 104 mmol/L (98-107); CREATININE 0.67 mg/dL (0.55-1.02)
[2020-01-20 06:04] LABS: ALKALINE PHOSPHATASE 56 U/L (45-117); BILIRUBIN,TOTAL 0.3 mg/dL (0.2-1.0); TOTAL PROTEIN 6.4 g/dL (6.4-8.2)
[2020-01-20] MEDS: DIPHENHYDRAMINE 50 MG/ML, 1ML IVPush PRN ×2 (06:24→18:01)
[2020-01-20 06:48] LABS: BASOPHILS # (AUTO) 0.01 x10^3/uL (0-0.1); BASOPHILS % (AUTO) 0 % (0-1); EOSINOPHILS % (AUTO) 0 % (1-7); LYMPHOCYTES % (AUTO) 8 % (22-44); MD SCAN; MONOCYTES # (AUTO) 0.88 x10^3/uL (0.2-0.8); MONOCYTES % (AUTO) 5 % (2-9); NEUTROPHILS # (AUTO) 15.64 x10^3/uL (1.8-6.8); NEUTROPHILS % (AUTO) 87 % (42-75)
[2020-01-20 06:50] VITALS: BP 137/84
[2020-01-20] MEDS: PANTOPRAZOLE 40 MG IV IVPush SCH (08:23)
[2020-01-20] MEDS ORDERED: PROMETHAZINE 25 MG/ML, 1ML IV PRN (08:30)
[2020-01-20] MEDS: SENNA/DOCUSATE TABLET PO SCH (08:35)
[2020-01-20] MEDS ORDERED: POTASSIUM CHLORIDE 40 MEQ in SODIUM CHLORIDE 0.9% 500 ML IV ONE (09:00)
[2020-01-20] MEDS: SODIUM CHLORIDE 0.9% 1,000 ML IV SCH (12:12)
[2020-01-20] MEDS: PIPERACILLIN/TAZO/PMX 4.5GM 100 ML IV SCH ×2 (12:12→18:48)
[2020-01-20 12:32] VITALS: BP 133/93
[2020-01-20] MEDS: MORPHINE SULFATE 4 MG/ML, 1ML IVPush PRN (17:43)
[2020-01-20] MEDS: methylPREDNISolone SOD SUCC 40 MG/ML IV SCH ×2 (18:47→21:28)
[2020-01-20 19:17] VITALS: BP 101/61
[2020-01-21] MEDS ORDERED: DIPHENHYDRAMINE 50 MG/ML, 1ML IVPush PRN
[2020-01-21 01:04] VITALS: BP 116/81
[2020-01-21] MEDS: PIPERACILLIN/TAZO/PMX 4.5GM 100 ML IV SCH ×2 (01:22→07:00)
[2020-01-21] MEDS: METOCLOPRAMIDE 5 MG/ML, 2ML IVPush PRN (03:20)
[2020-01-21] MEDS: MORPHINE SULFATE 4 MG/ML, 1ML IVPush PRN (03:20)
[2020-01-21 05:44] LABS: BASOPHILS # (AUTO) 0.05 x10^3/uL (0-0.1); BASOPHILS % (AUTO) 0 % (0-1); EOSINOPHILS % (AUTO) 0 % (1-7); LYMPHOCYTES % (AUTO) 11 % (22-44); MD NO; MEAN CORPUSCULAR HEMOGLOBIN 30.5 pg (27.0-34.8); MEAN CORPUSCULAR HGB CONC 33.2 g/dL (32.4-35.8); MEAN CORPUSCULAR VOLUME 91.7 fL (80-100); MEAN PLATELET VOLUME 9.8 fL (7.4-10.4); MONOCYTES # (AUTO) 0.68 x10^3/uL (0.2-0.8); MONOCYTES % (AUTO) 5 % (2-9); NEUTROPHILS # (AUTO) 12.75 x10^3/uL (1.8-6.8); NEUTROPHILS % (AUTO) 85 % (42-75); PLATELET COUNT 220 x10^3/uL (130-400); RED BLOOD COUNT 3.34 x10^6/uL (3.82-5.3); RED CELL DISTRIBUTION WIDTH 14.3 % (9.6-15.2)
[2020-01-21 05:51] LABS: ALANINE AMINOTRANSFERASE 18 U/L (12-78); ALBUMIN 2.5 g/dL (3.4-5.0); ANION GAP 4 mmol/L (5-15); CALCIUM 8.1 mg/dL (8.5-10.1); CHLORIDE 107 mmol/L (98-107)
[2020-01-21 05:54] LABS: ALKALINE PHOSPHATASE 49 U/L (45-117); BILIRUBIN,TOTAL 0.6 mg/dL (0.2-1.0); CREATININE 0.63 mg/dL (0.55-1.02); TOTAL PROTEIN 5.9 g/dL (6.4-8.2)
[2020-01-21] MEDS: SODIUM CHLORIDE 0.9% 1,000 ML IV SCH (07:00)
[2020-01-21] MEDS: PANTOPRAZOLE 40 MG IV IVPush SCH (07:30)
[2020-01-21] MEDS: SENNA/DOCUSATE TABLET PO SCH (09:00)
== END 2020-01-21 11:25 | disposition left against medical advice (07) | DRG 832 ==
LOC: ED 10:20 → EDIP 12:57 → 3N 15:36
PROVIDERS: ADMIT Internal Medicine; ATTEND Internal Medicine
DX: O26.612 Liver and biliary tract disorders in pregnancy, second trimester (principal); O26.832 Pregnancy related renal disease, second trimester; O99.112 Other diseases of the blood and blood-forming organs and certain disorders involving the immune mechanism complicating pregnancy, second trimester; K80.10 Calculus of gallbladder with chronic cholecystitis without obstruction; E86.0 Dehydration; F41.9 Anxiety disorder, unspecified; O99.342 Other mental disorders complicating pregnancy, second trimester; O99.212 Obesity complicating pregnancy, second trimester; E66.01 Morbid (severe) obesity due to excess calories; D72.829 Elevated white blood cell count, unspecified; N20.0 Calculus of kidney; O99.282 Endocrine, nutritional and metabolic diseases complicating pregnancy, second trimester; Z3A.22 22 weeks gestation of pregnancy; Z53.29 Procedure and treatment not carried out because of patient's decision for other reasons
CPT/HCPCS: 36415; 76700; 80053; 81001; 83690; 83735; 84100; 85025; 87040; 96361; 96374; G0378; J2405; J2543; J2550; J3010; J3480; C9113; J1200; J2270; J2765; J2920; J7030; J7040

== ENCOUNTER 2020-05-10 08:36 | Outpatient (CLI) | payer MEDICAID ==
[~2020-05-10] VITALS: Ht 170.2 cm; Wt 113.6 kg
[2020-05-10 09:16] LABS: AMPHETAMINE SCREEN, URINE Negative (Negative); BARBITURATE SCREEN, URINE Negative (Negative); BENZODIAZEPINE SCREEN, URINE Negative (Negative); CANNABINOID SCREEN, URINE Positive (Negative); COCAINE SCREEN, URINE Negative (Negative); METHADONE SCREEN, URINE Negative (Negative); OPIATE SCREEN, URINE Negative (Negative)
[2020-05-10 09:39] VITALS: BP 130/73
[2020-05-10 09:57] LABS: MICROSCOPIC INDICATED
[2020-05-10] MEDS ORDERED: LACTATED RINGERS 1,000 ML IVBOLUS ONE (10:30)
[2020-05-10] MEDS ORDERED: PROMETHAZINE 25 MG/ML, 1ML ONE (10:51)
[2020-05-10] MEDS ORDERED: MEPERIDINE/PF 50 MG/ML ONE (10:51)
[2020-05-10] MEDS ORDERED: NITROFURANTOIN (MACROBID) 100 MG CAPSULE ONE (10:52)
[2020-05-10] MEDS ORDERED: PROMETHAZINE 25 MG/ML, 1ML IM ONE (11:00)
[2020-05-10] MEDS ORDERED: MEPERIDINE/PF 50 MG/ML IM PRN (11:00)
[2020-05-10] MEDS ORDERED: NITROFURANTOIN (MACROBID) 100 MG CAPSULE PO ONE (11:00)
[2020-05-10] MEDS ORDERED: NITR100C56 PO ×2 (11:21→11:22)
== END 2020-05-10 11:30 | disposition home or self-care (01) ==
LOC: LDOP 08:36
PROVIDERS: ATTEND Obstetrics & Gynecology
DX: O26.893 Other specified pregnancy related conditions, third trimester (principal); R10.30 Lower abdominal pain, unspecified; O23.40 Unspecified infection of urinary tract in pregnancy, unspecified trimester; R19.7 Diarrhea, unspecified; O99.343 Other mental disorders complicating pregnancy, third trimester; E66.01 Morbid (severe) obesity due to excess calories; O21.2 Late vomiting of pregnancy; Z3A.38 38 weeks gestation of pregnancy
CPT/HCPCS: 59025; 80307; 81001; 87086; 96360; 96361; 96372; J2175; J7120

== ENCOUNTER 2020-05-10 17:29 | Outpatient (CLI) | payer MEDICAID ==
[~2020-05-10 17:29] MED LIST changes: +NITR100C56 PO
== END 2020-05-10 18:20 | disposition left against medical advice (07) ==
LOC: LDOP 17:29
PROVIDERS: ATTEND Obstetrics & Gynecology
DX: O62.8 Other abnormalities of forces of labor (principal); Z3A.38 38 weeks gestation of pregnancy
CPT/HCPCS: 59025